=== PATIENT | male | born 1955 | race Caucasian/White ===

== ENCOUNTER → 2017-12-23 | Outpatient (CLI) | payer OTHER ==
--- NOTE | 2017-12-23 16:59 | US ---
EXAMINATION TYPE: US carotid duplex BILAT DATE OF EXAM: 12/23/2017 COMPARISON: NONE CLINICAL HISTORY: H35.60 Retinal hemorrhage left eye. EXAM MEASUREMENTS: RIGHT: Peak Systolic Velocity (PSV) cm/sec ----- Right CCA: 69.6 ----- Right ICA: 78.8 ----- Right ECA: 112.9 ICA/CCA ratio: 1.1 RIGHT: End Diastole cm/sec ----- Right CCA: 21.7 ----- Right ICA: 36.1 ----- Right ECA: 30.5 LEFT: Peak Systolic Velocity (PSV) cm/sec ----- Left CCA: 54.9 ----- Left ICA: 88.7 ----- Left ECA: 67.2 ICA/CCA ratio: 1.6 LEFT: End Diastole cm/sec ----- Left CCA: 21.9 ----- Left ICA: 40.2 ----- Left ECA: 20.6 VERTEBRALS (direction of flow): Right Vertebral: Antegrade Left Vertebral: Antegrade Rhythm: Normal Within the right thyroid, there is a complex, hyperechoic solid appearing nodule visualized measuring 4.8 x 3.8 x 4.0 cm with internal vascularity. Within the left thyroid lobe, there is hyperechoic jeannie id appearing nodule visualized measuring 1.2 x 1.1 x 1.2 cm with internal vascularity. Grayscale images show mild to moderate peripheral shadowing plaque at bilateral carotid bulbs. Veloci ty measurements and ratios in visualized portion of both internal carotid arteries is within normal l imits. Greater than 1 cm nodules bilaterally are seen, dominant more suspicious 4.8 cm right-sided th yroid nodule is noted. IMPRESSION: Mild to moderate atherosclerotic change bilaterally without hemodynamically significant s tenosis seen in either internal carotid artery. Thyroid nodularity, advised ENT referral and and dedi cated thyroid ultrasound to better evaluate and characterize if this is not known finding.
== END | disposition home or self-care (01) ==
LOC: RADUSWWP 16:06
PROVIDERS: ATTEND Ophthalmology
DX: R93.8 Abnormal findings on diagnostic imaging of other specified body structures (principal); E04.2 Nontoxic multinodular goiter; H35.60 Retinal hemorrhage, unspecified eye
CPT/HCPCS: 93880

== ENCOUNTER → 2019-07-10 | Outpatient (CLI) | payer OTHER ==
[2019-07-10 16:07] LABS: ALT 29 U/L (21-72); AST 27 U/L (17-59); African American GFR (CKD) >90 (>60 ml/min/1.73 sqM); Albumin 4.7 g/dL (3.5-5.0); Alkaline Phosphatase 63 U/L (38-126); Anion Gap 8 mmol/L; Blood Urea Nitrogen 15 mg/dL (9-20); Calcium 9.8 mg/dL (8.4-10.2); Carbon Dioxide 32 mmol/L (22-30); Chloride 100 mmol/L (98-107); Glucose 106 mg/dL (74-99); Potassium 4.7 mmol/L (3.5-5.1); Sodium 140 mmol/L (137-145); Total Bilirubin 0.4 mg/dL (0.2-1.3); Total Protein 7.5 g/dL (6.3-8.2)
[2019-07-10 16:34] LABS: Prothrombin Time 10.6 sec (9.0-12.0)
[2019-07-10 23:54] LABS: Hemoglobin A1C 6.6 % (4.0-6.0)
== END | disposition home or self-care (01) ==
LOC: LABPAT 14:48
PROVIDERS: ATTEND Physician Assistant
DX: Z01.810 Encounter for preprocedural cardiovascular examination (principal); Z01.812 Encounter for preprocedural laboratory examination
CPT/HCPCS: 80053; 83036; 85610; 93005

== ENCOUNTER 2019-07-17 12:37 | Day surgery (SDC) | payer OTHER ==
[~2019-07-17 12:37] MED LIST: DEXAMETHASONE SOD PHOSPHATE 10 MG/ML 1 ML VIAL IV ONE; HYDROmorphone 0.5 MG/0.5 ML SYRINGE IVP PRN; LACTATED RINGERS 1,000 ML IV SCH; MIDAZOLAM 2 MG/2 ML VIAL IV PRN; ONDANSETRON 4 MG/2 ML VIAL IVP ONE; Pre Op ABX Message 1 EACH MISC MISCELLANE ONE; SCOPOLAMINE 1.5MG/72HR PATCH TRANSDERM ONE
[2019-07-17 13:16] LABS: Glucose,Whole Blood 127 mg/dL (75-99)
--- NOTE | 2019-07-17 14:50 | P.ANPRN ---
Procedure Note - Anesthesia - Nerve Block Performed Left Supraclavicular Single Time Out Performed: Yes Date of Procedure: 07/17/19 Procedure Start Time: 13:43 Procedure Stop Time: 13:52 Location of Patient Procedure: PreOp Indication: Acute Post-Operative Pain, Requested by Surgeon Sedation Type: Sedate with meaningful contact maintained Preparation: Sterile Prep, Sterile Dressing Position: Supine Catheter: None Needle Types: On-Q Needle Gauge: 20 Ultrasound used to visualize needle placement: Yes Ultrasound used to observe medication spread: Yes Injectate: 0.5% Ropivacaine (see comment for volume) (30 ml + decadron 10 mg) Blood Aspirated: No Pain Paresthesia on Injection Noted: No Resistance on Injection: Normal Image Stored and Saved: Yes Events: Uneventful and Well Tolerated
[2019-07-17] MEDS ORDERED: ROPIVACAINE 5 MG/ML 30 ML VIAL ONE (15:27)
[2019-07-17] MEDS ORDERED: ROCURONIUM BROMIDE 10 MG/ML 10 ML VIAL IV ONE (15:27)
[2019-07-17] MEDS ORDERED: MIDAZOLAM 2 MG/2 ML VIAL ONE (15:27)
[2019-07-17] MEDS ORDERED: NEOSTIGMINE 1 MG/ML 10 ML VIAL ONE (15:27)
[2019-07-17] MEDS ORDERED: fentaNYL (PF) 50 MCG/ML 2 ML AMP ONE (15:27)
[2019-07-17] MEDS ORDERED: SUCCINYLCHOLINE CHLORIDE 100 MG/5 ML SYR IV ONE (15:27)
[2019-07-17] MEDS ORDERED: PROPOFOL 10 MG/ML 20 ML VIAL IV ONE (15:27)
[2019-07-17] MEDS ORDERED: LIDOCAINE 1% INJ 10MG/ML (20 ML MDV) ONE (15:27)
[2019-07-17] MEDS ORDERED: GLYCOPYRROLATE 0.2 MG/ML 2 ML VIAL ONE (15:27)
[2019-07-17] MEDS ORDERED: BUPIVACAINE (PF) 0.5% 30 ML VIAL SQ ONE ×2 (16:27)
[2019-07-17] MEDS ORDERED: LIDOCAINE 1%-EPI 1:100,000 20 ML VIAL SQ ONE ×2 (16:27)
[2019-07-17 17:53] LABS: Glucose,Whole Blood 162 mg/dL (75-99)
[2019-07-17 17:58] VITALS: TEMP 97.1
[2019-07-17] MEDS ORDERED: LACTATED RINGERS 1,000 ML IV ONE (18:10)
[2019-07-17 19:10] VITALS: BP 142/67; PULSE 68; RESP 18
--- NOTE | 2019-07-19 15:47 | P.OP ---
Date of Procedure: 07/17/19 Preoperative Diagnosis: 1. Left carpal tunnel syndrome. 2. 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 Postoperative Diagnosis: 1. Left carpal tunnel syndrome. 2. 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 Procedure(s) Performed: 1. Left endoscopic carpal tunnel release. 2. Left elbow ulnar nerve decompression. Anesthesia: GETA, regional, local Surgeon: Joesph Vlilegas Estimated Blood Loss (ml): 5 Condition: stable Disposition: PACU Indications for Procedure: The patient is a pleasant 64-year-old male who was diagnosed with left carpal tunnel syndrome and severe left cubital tunnel syndrome with intrinsic atrophy. Treatment options (and associated risks and benefits) were discussed in the office. The patient chose surgical release. In preop, I reiterated that there is strong potential for incomplete relief of symptoms. He may experience permanently diminished sensation and persistent weakness, even after surgical release. He expressed understanding and wished to proceed with surgery. Consent forms were signed. The operative sites were confirmed and marked. Description of Procedure: The patient was positioned supine with the operative limb on a hand table and all bony prominences were well-padded. General anesthesia was administered uneventfully. A tourniquet was placed on the left arm which was then prepped and draped in standard, sterile fashion. A time-out was performed, confirming patient identifiers, the operative side, sites and the procedures to be performed: all team members expressed agreement. The limb was exsanguinated with an Esmarch and the tourniquet was inflated. The carpal tunnel was approached first. Loupe magnification was utilized throughout the case for optimum visualization. A 1.5 cm transverse incision was marked just proximal to the wrist flexion crease, in line with the radial border of the ring finger. The skin was sharply incised and the subcutaneous tissues were spread. The volar carpal fascia was identified and sharply incised. attempts to insert a smooth elevator were met with resistance and traction against the median nerve. A [place] elevator was inserted and used to carefully release the adhesions. The synovial elevator was again inserted and passed easily and atraumatically into the carpal tunnel. This was then used to release adhesions on the underside of the transverse carpal ligament. A dilator was used to sound and enlarge the carpal tunnel. The hamate hook was palpable ulnarly. The washboard effect was palpable. The side-specific guide and camera were inserted. The ligament was clearly visualized above. The distal end of the ligament was palpated with a probe. A synovial rasp was used to clear remaining adhesions. The endoscopic blade was inserted and the distal half of the ligament was sharply incised. Residual transverse fibers were released distally and then the proximal portion of the ligament was divided. Wide release of ligament was visually confirmed. The camera was removed. Under direct visualization with loupe magnification, the volar carpal fascia was released with scissors, proximally and distally. The wound was irrigated with normal saline and the incision was closed with interrupted 4-0 Nylon sutures. Attention was then t urned to the elbow. A curvilinear incision was marked posterior to the medial epicondyle. The skin was sharply incised and the subcutaneous tissues were spread, cauterizing superficial vessels as needed. The ulnar nerve was palpably identified posterior to the epicondyle. Multiple layers of thickened, rubbery fibrous tissue were present above the nerve. The nerve was exposed on the posterior aspect of the retro-condylar groove. The proximal course of the nerve was traced and the overlying adhesions were released to approximately 10 cm above the epicondyle. The nerve was then traced distally. Engle's ligament was released on its posterior aspect, leaving a cuff of tissue anteriorly to prevent subluxation. Small crossing vessels at the proximal aspect of the tunnel overlying the nerve were mobilized but left intact. The fascia over the flexor-pronator mass was incised and the muscle fibers were bluntly spread, taking care to protect the exiting motor branches. All along its course, the nerve appeared flattened and dusky with poor turgor, consistent with chronic compression. Of note, no muscle twitches were observed in the hand or wrist during the process of decompressing the nerve. Once completely decompressed, the elbow was taken through full range of motion. There was no instability or subluxation of the nerve. There was note of some mild tethering at the proximal aspect of the tunnel. The insertion of the medial intramuscular septum was partially released. Repeat motion testing showed no further tethering. The tourniquet was released after 69 minutes at 250 mmHg. Good hemostasis was obtained with held pressure and bipolar cautery. Good hemostasis at the wrist was also confirmed. The wound was thoroughly irrigated with normal saline. The subcutaneous tissues were reapproximated with 3-0 Vicryl sutures. The incision was closed with interrupted 4-0 Nylon sutures. Additional local anesthetic with epinephrine was injected around both wounds for postoperative pain control and adjunctive hemostasis. A soft, sterile dressing was applied to the wrist. A separate soft, sterile dressing was applied to the elbow. All sponge, needle and instrument counts were correct at the end of the case. The patient tolerated the procedure well and was transferred to recovery in stable condition.
== END 2019-07-17 19:12 | disposition home or self-care (01) ==
LOC: OR 12:37
PROVIDERS: ATTEND Orthopaedic Surgery
DX: G56.02 Carpal tunnel syndrome, left upper limb (principal); G56.22 Lesion of ulnar nerve, left upper limb; I10 Essential (primary) hypertension; E78.5 Hyperlipidemia, unspecified; H40.9 Unspecified glaucoma; K21.9 Gastro-esophageal reflux disease without esophagitis; F32.9 Major depressive disorder, single episode, unspecified; E11.51 Type 2 diabetes mellitus with diabetic peripheral angiopathy without gangrene; Z97.2 Presence of dental prosthetic device (complete) (partial); F17.210 Nicotine dependence, cigarettes, uncomplicated; Z83.3 Family history of diabetes mellitus; Z82.49 Family history of ischemic heart disease and other diseases of the circulatory system; Z79.84 Long term (current) use of oral hypoglycemic drugs; Z79.899 Other long term (current) drug therapy; Z91.030 Bee allergy status
CPT/HCPCS: 64721; 64718; 64415; 76942; J2250; J1100; J2710; J2405; J2001; J3010; J2795; J0330; J2704; 64413

== ENCOUNTER → 2020-03-24 | Outpatient (CLI) | payer OTHER ==
[2020-03-24 10:39] LABS: HCT 48.1 % (39.0-53.0); HGB 16.2 gm/dL (13.0-17.5); MCH 31.1 pg (25.0-35.0); MCHC 33.7 g/dL (31.0-37.0); MCV 92.4 fL (80.0-100.0); Mean Platelet Volume 6.8; Platelet Count 293 k/uL (150-450); RBC 5.21 m/uL (4.30-5.90); RDW 12.3 % (11.5-15.5); WBC 7.8 k/uL (3.8-10.6)
[2020-03-24 16:54] LABS: T4, Free (Free Thyroxine) 1.3 ng/dL (0.80-1.80)
[2020-03-24 17:39] LABS: African American GFR (CKD) 105.7 (60.0-200.0); Albumin 4.4 g/dL (3.80-4.90); Albumin/Globulin Ratio 2.1 (1.60-3.17); Anion Gap 5.5 mmol/L (4.00-12.00); BUN/Creat Ratio 14.44 Ratio (12.00-20.00); Calcium 9.4 mg/dL (8.7-10.3); Carbon Dioxide 29.5 mmol/L (21.6-31.8); Chol/HDL Ratio 9.38; Globulin 2.1 g/dL (1.6-3.3); Non-African American GFR(CKD) 91.2 (60.0-200.0); Potassium 4.6 mmol/L (3.5-5.5); Total Bilirubin 0.3 mg/dL (0.2-1.2); Total Protein 6.5 g/dL (6.2-8.2)
[2020-03-24 19:51] LABS: Hemoglobin A1C 7.8 % (4.0-6.0)
== END | disposition home or self-care (01) ==
LOC: LABWHC1 09:41
PROVIDERS: ATTEND Internal Medicine
DX: E11.9 Type 2 diabetes mellitus without complications (principal); E78.5 Hyperlipidemia, unspecified; I10 Essential (primary) hypertension; R53.83 Other fatigue
CPT/HCPCS: 36415; 80053; 80061; 82306; 82607; 83036; 83721; 84439; 84443; 85027

== ENCOUNTER → 2020-05-05 | Outpatient (CLI) | payer OTHER ==
--- NOTE | 2020-05-06 07:04 | US ---
EXAMINATION TYPE: US thyroid st tissue head/neck DATE OF EXAM: 05/05/2020 COMPARISON: NONE CLINICAL HISTORY: E04.2 Thyroid nodule. Thyroid nodules GLAND SIZE: Right Lobe: 5.6 x 3.7 x 3.8 cm Overall Parenchyma: heterogenous Left Lobe: 3.8 x 2.1 x 1.7 cm Overall Parenchyma: heterogeneous Isthmus Thickness: 0.4 cm NODULES RIGHT: # of nodules measured on right: 1 1. 4.7 X 3.0 x 3.4 cm hypoechoic mixed nodule at the mid pole with well-defined margins. This nodul e is wider than tall and shows intranodular vascularity. Prior size: no previous LEFT: # of nodules measured on left: 1 1. 1.2 X 1.2 x 1.1 cm hyperechoic solid nodule at the lower pole with well-defined margins. This no dule is taller than wide and shows peripheral vascularity . Prior size: no previous ISTHMUS: # of nodules measured in the isthmus: 0 Bilateral neck scanned, no evidence of lymphadenopathy. IMPRESSION: Nonspecific thyroid nodularity. The need to biopsy should be made on a clinical basis.
== END | disposition home or self-care (01) ==
LOC: RADUSWWP 16:18
PROVIDERS: ATTEND Internal Medicine
DX: E04.2 Nontoxic multinodular goiter (principal)
CPT/HCPCS: 76536

== ENCOUNTER 2020-05-13 10:33 | Emergency (ER) | payer OTHER ==
[2020-05-13] MEDS ORDERED: MORPHINE SULFATE 4 MG/ML SYRINGE IV STA (10:52)
[2020-05-13] MEDS ORDERED: SODIUM CHLORIDE 0.9% 500 ML 500 ML IV STA (10:52)
[2020-05-13 11:15] LABS: Appearance,Urine Clear (Clear); Bilirubin,Urine Negative (Negative); Blood,Urine Negative (Negative); Color,Urine Yellow; Glucose,Urine (UA) 1+ (Negative); Ketones,Urine Negative (Negative); Leukocyte Esterase,Urine Negative (Negative); Nitrite,Urine Negative (Negative); PH, Urine 5.5 (5.0-8.0); Protein,Urine Trace (Negative); Specific Gravity,Urine 1.033 (1.001-1.035)
[2020-05-13 11:19] LABS: Basophils % (A) 0 %; Eosinophils # (A) 0.2 k/uL (0-0.7); Eosinophils % (A) 2 %; HCT 48.5 % (39.0-53.0); HGB 16.3 gm/dL (13.0-17.5); Lymphocytes # (A) 2.2 k/uL (1.0-4.8); Lymphocytes % (A) 30 %; MCH 30.5 pg (25.0-35.0); MCHC 33.6 g/dL (31.0-37.0); MCV 90.9 fL (80.0-100.0); Mean Platelet Volume 7.2; Monocytes # (A) 0.6 k/uL (0-1.0); Monocytes % (A) 8 %; Neutrophils # (A) 4.1 k/uL (1.3-7.7); Neutrophils % (A) 57 %; Platelet Count 267 k/uL (150-450); RBC 5.33 m/uL (4.30-5.90); RDW 12.4 % (11.5-15.5); WBC 7.2 k/uL (3.8-10.6)
--- NOTE | 2020-05-13 11:19 | ED ---
General Adult HPI - General Chief complaint: Abdominal Pain Stated complaint: ABD pain left side Time Seen by Provider: 05/13/20 10:42 Source: patient, RN notes reviewed, old records reviewed Mode of arrival: ambulatory Limitations: no limitations - History of Present Illness Initial comments: 65-year-old male patient presents to ED for evaluation of left lower quadrant pain. Patient reports has been ongoing for the last 3 days. Denies any nausea vomiting fevers or chills. Denies any pain in any other areas. Denies any other acute complaints. Systemic: Pt denies fatigue, fever/chills, rash. Pt denies weakness, night sweats, weight loss. Neuro: Pt denies headache, visual disturbances, syncope or pre-syncope. HEENT: Pt denies ocular discharge or irritation, otalgia, rhinorrhea, pharyngitis or notable lymphadenopathy. Cardiopulmonary: Pt denies chest pain, SOB, heart palpitations, dyspnea on exertion. Abdominal/GI: Pt denies n/v/d. : Pt denies dysuria, burning w/ urination, frequency/urgency. Denies new onset urinary or bowel incontinence. MSK: Pt denies myalgia, loss of strength or function in extremities. Neuro: Pt denies new onset weakness, paresthesias. - Related Data Home Medications Medication Instructions Recorded Confirmed Multivitamins, Thera [Multivitamin 1 tab PO DAILY 07/16/19 05/13/20 (formulary)] Tamsulosin [Flomax] 0.4 mg PO HS 07/16/19 05/13/20 Umeclidinium [place] [Incruse 1 puff INHALATION RT-DAILY 07/16/19 05/13/20 Ellipta] metFORMIN HCL [Glucophage] 1,000 mg PO BID 07/16/19 05/13/20 Albuterol Inhaler [Ventolin Hfa 2 puff INHALATION RT-QID PRN 05/13/20 05/13/20 Inhaler] Brimonidine Tartrate [Alphagan P 1 drops BOTH EYES BID 05/13/20 05/13/20 0.2% Ophth Soln] Dorzolamide-Timol 2.23%/0.68% 1 drop BOTH EYES BID 05/13/20 05/13/20 [Cosopt] Ergocalciferol [Vitamin D2] 50,000 unit PO BROWN 05/13/20 05/13/20 Fenofibrate Nanocrystallized 145 mg PO HS 05/13/20 05/13/20 [Fenofibrate] Fluticasone/Salmeterol 1 puff INHALATION RT-DAILY 05/13/20 05/13/20 [Fluticasone-Salmeterol 232-14] Losartan/Hydrochlorothiazide 1 tab PO DAILY 05/13/20 05/13/20 [Losartan-Hctz 50-12.5 mg Tab] Allergies Allergy/AdvReac Type Severity Reaction Status Date / Time No Known Allergies Allergy Verified 05/13/20 11:19 Review of Systems ROS Statement: Those systems with pertinent positive or pertinent negative responses have been documented in the HPI. ROS Other: All systems not noted in ROS Statement are negative. Past Medical History Past Medical History: COPD, Diabetes Mellitus, GERD/Reflux, Hyperlipidemia, Hypertension, Sleep Apnea/CPAP/BIPAP Additional Past Medical History / Comment(s): USES CPAP. History of Any Multi-Drug Resistant Organisms: None Reported Past Surgical History: Hernia Repair, Orthopedic Surgery Additional Past Surgical History / Comment(s): GLAUCOMA IN LEFT EYE /SURGERY. left elbow Past Anesthesia/Blood Transfusion Reactions: No Reported Reaction Past Psychological History: Anxiety Smoking Status: Current every day smoker Past Alcohol Use History: Rare Past Drug Use History: Marijuana - Past Family History Mother Family Medical History: Deep Vein Thrombosis (DVT) General Exam - General Exam Comments Initial Comments: Constitutional: NAD, AOX3, Pt has pleasant affect. HEENT: NC/AT, trachea midline, neck supple, no lymphadenopathy. External ears appear normal, without discharge. Mucous membranes moist. Eyes PERRLA, EOM intact. There is no scleral icterus. No pallor noted. Cardiopulmonary: RRR, no murmurs, rubs or gallops, no JVD noted. Lungs CTAB in a nterior and posterior queen. No peripheral edema. Abdominal exam: Abdomen soft and non-distended. Abdomen mildly tender to palpation in left lower quadrant region. Bowel sounds active in LLQ. No hep atosplenomegaly. No ecchymosis Neuro: CN II-XII grossly intact. No nuchal rigidity. MSK: Full active ROM in upper and lower extremities, extremities warm and well perfused. Limitations: no limitations Course Vital Signs 05/13/20 05/13/20 10:37 11:13 Temperature 98.4 F Pulse Rate 86 81 Respiratory 18 18 Rate Blood Pressure 146/85 140/89 O2 Sat by Pulse 97 96 Oximetry Medical Decision Making - Medical Decision Making 64-year-old male patient with ED for left lower quadrant abdominal pain. Patient vital signs are stable, afebrile. Physical exam doesn't display some mild left lower quadrant tenderness. Laboratory investigations are unremarkable adipose and display any acute process. Patient discharged to follow up with primary care provider will return to ER with any worsening symptoms. Case discussed with Dr. Rader. - Lab Data Result diagrams: 05/13/20 10:56 05/13/20 10:56 Lab Results 05/13/20 05/13/20 05/13/20 Range/Units 10:56 10:56 10:56 WBC 7.2 (3.8-10.6) k/uL RBC 5.33 (4.30-5.90) m/uL Hgb 16.3 (13.0-17.5) gm/dL Hct 48.5 (39.0-53.0) % MCV 90.9 (80.0-100.0) fL MCH 30.5 (25.0-35.0) pg MCHC 33.6 (31.0-37.0) g/dL RDW 12.4 (11.5-15.5) % Plt Count 267 (150-450) k/uL Neutrophils % 57 % Lymphocytes % 30 % Monocytes % 8 % Eosinophils % 2 % Basophils % 0 % Neutrophils # 4.1 (1.3-7.7) k/uL Lymphocytes # 2.2 (1.0-4.8) k/uL Monocytes # 0.6 (0-1.0) k/uL Eosinophils # 0.2 (0-0.7) k/uL Basophils # 0.0 (0-0.2) k/uL Sodium 135 L (137-145) mmol/L Potassium 4.5 (3.5-5.1) mmol/L Chloride 101 (98-107) mmol/L Carbon Dioxide 27 (22-30) mmol/L Anion Gap 7 mmol/L BUN 15 (9-20) mg/dL Creatinine 0.78 (0.66-1.25) mg/dL Est GFR (CKD-EPI)AfAm >90 (>60 ml/min/1.73 sqM) Est GFR (CKD-EPI)NonAf >90 (>60 ml/min/1.73 sqM) Glucose 174 H (74-99) mg/dL Plasma Lactic Acid Raz (0.7-2.0) mmol/L Calcium 9.8 (8.4-10.2) mg/dL Total Bilirubin 0.6 (0.2-1.3) mg/dL AST 32 (17-59) U/L ALT 43 (4-49) U/L Alkaline Phosphatase 41 (38-126) U/L Total Protein 7.0 (6.3-8.2) g/dL Albumin 4.6 (3.5-5.0) g/dL Lipase 54 (23-300) U/L Urine Color Yellow Urine Appearance Clear (Clear) Urine pH 5.5 (5.0-8.0) Ur Specific [place] 1.033 (1.001-1.035) Urine Protein Trace H (Negative) Urine Glucose (UA) 1+ H (Negative) Urine Ketones Negative (Negative) Urine Blood Negative (Negative) Urine Nitrite Negative (Negative) Urine Bilirubin Negative (Negative) Urine Urobilinogen 2.0 (<2.0) mg/dL Ur Leukocyte Esterase Negative (Negative) 05/13/20 Range/Units 10:56 WBC (3.8-10.6) k/uL RBC (4.30-5.90) m/uL Hgb (13.0-17.5) gm/dL Hct (39.0-53.0) % MCV (80.0-100.0) fL MCH (25.0-35.0) pg MCHC (31.0-37.0) g/dL RDW (11.5-15.5) % Plt Count (150-450) k/uL Neutrophils % % Lymphocytes % % Monocytes % % Eosinophils % % Basophils % % Neutrophils # (1.3-7.7) k/uL Lymphocytes # (1.0-4.8) k/uL Monocytes # (0-1.0) k/uL Eosinophils # (0-0.7) k/uL Basophils # (0-0.2) k/uL Sodium (137-145) mmol/L Potassium (3.5-5.1) mmol/L Chloride (98-107) mmol/L Carbon Dioxide (22-30) mmol/L Anion Gap mmol/L BUN (9-20) mg/dL Creatinine (0.66-1.25) mg/dL Est GFR (CKD-EPI)AfAm (>60 ml/min/1.73 sqM) Est GFR (CKD-EPI)NonAf (>60 ml/min/1.73 sqM) Glucose (74-99) mg/dL Plasma Lactic Acid Raz 1.3 (0.7-2.0) mmol/L Calcium (8.4-10.2) mg/dL Total Bilirubin (0.2-1.3) mg/dL AST (17-59) U/L ALT (4-49) U/L Alkaline Phosphatase (38-126) U/L Total Protein (6.3-8.2) g/dL Albumin (3.5-5.0) g/dL Lipase (23-300) U/L Urine Color Urine Appearance (Clear) Urine pH (5.0-8.0) Ur Specific [place] (1.001-1.035) Urine Protein (Negative) Urine Glucose (UA) (Negative) Urine Ketones (Negative) Urine Blood (Negative) Urine Nitrite (Negative) Urine Bilirubin (Negative) Urine Urobilinogen (<2.0) mg/dL Ur Leukocyte Esterase (Negative) Disposition Clinical Impression: Abdominal pain Disposition: HOME SELF-CARE Condition: Stable Instructions (If sedation given, give patient instructions): Abdominal Pain ( ED) Additional Instructions: Follow-up with primary care provider tomorrow. Return to ER if any worsening symptoms. Is patient prescribed a controlled substance at d/c from ED?: No Referrals: Sky Reyes MD [Primary Care Provider] - 1-2 days
[2020-05-13 11:29] LABS: ALT 43 U/L (4-49); AST 32 U/L (17-59); African American GFR (CKD) >90 (>60 ml/min/1.73 sqM); Albumin 4.6 g/dL (3.5-5.0); Alkaline Phosphatase 41 U/L (38-126); Anion Gap 7 mmol/L; Blood Urea Nitrogen 15 mg/dL (9-20); Calcium 9.8 mg/dL (8.4-10.2); Carbon Dioxide 27 mmol/L (22-30); Chloride 101 mmol/L (98-107); Glucose 174 mg/dL (74-99); Lipase 54 U/L (23-300); Non-African American GFR(CKD) >90 (>60 ml/min/1.73 sqM); Potassium 4.5 mmol/L (3.5-5.1); Sodium 135 mmol/L (137-145); Total Bilirubin 0.6 mg/dL (0.2-1.3)
--- NOTE | 2020-05-13 12:21 | CT ---
EXAMINATION TYPE: CT abdomen pelvis w con DATE OF EXAM: 05/13/2020 COMPARISON: None HISTORY: Lt Abdominal pain CT DLP: 1575.9 mGycm Automated exposure control for dose reduction was used. TECHNIQUE: Helical acquisition of images was performed from the lung bases through the pelvis. CONTRAST: Performed without Oral Contrast and with IV Contrast, patient injected with 100 mL of Isovue 300. FINDINGS: LUNG BASES: No significant abnormality is appreciated. LIVER: Normal. BILIARY SYSTEM: Normal. PANCREAS: Normal. SPLEEN: Normal. ADRENALS: Normal. KIDNEYS: Too small to characterize hypodense lesions of the left kidney. No hydronephrosis. BOWEL: No evidence of bowel obstruction or thickening. Colonic diverticulosis. No acute diverticulit is. Normal appendix. PERITONEUM: No free air is visualized. No free fluid. Tiny fat-containing umbilical hernia. ADENOPATHY: No lymphadenopathy. PELVIS: Incompletely distended urinary bladder. Prostatic calcification. VASCULATURE: No abdominal aortic aneurysm. MUSCULOSKELETAL: Degenerative changes of the spine. IMPRESSION: 1. No acute process to explain patient's left lower quadrant abdominal pain. 2. Colonic diverticulosis. No acute diverticulitis.
[2020-05-13] MEDS ORDERED: SODIUM CHLORIDE 0.9% 500 ML 500 ML IV ONE (12:35)
[2020-05-13 13:03] VITALS: BP 129/79; PULSE 71; RESP 18; TEMP 97.8
[2020-05-13] MEDS ORDERED: ACET/COD 300 MG/30 MG STARTER PACK 6 TAB BTL PO STA (13:06)
== END 2020-05-13 13:06 | disposition home or self-care (01) ==
LOC: EC 10:33
DX: R10.32 Left lower quadrant pain (principal); J44.9 Chronic obstructive pulmonary disease, unspecified; E11.9 Type 2 diabetes mellitus without complications; E78.5 Hyperlipidemia, unspecified; I10 Essential (primary) hypertension; G47.33 Obstructive sleep apnea (adult) (pediatric); F17.200 Nicotine dependence, unspecified, uncomplicated; Z79.84 Long term (current) use of oral hypoglycemic drugs; Z99.89 Dependence on other enabling machines and devices; Z79.899 Other long term (current) drug therapy
CPT/HCPCS: 36415; 74177; 80053; 81003; 83605; 83690; 85025; 96361; 96374; 99284

== ENCOUNTER 2020-07-06 07:11 | Day surgery (SDC) | payer OTHER ==
[2020-07-04 11:36] VITALS: BMI 31.5
[~2020-07-06 07:11] MED LIST changes: -DEXAMETHASONE SOD PHOSPHATE 10 MG/ML 1 ML VIAL IV ONE; -HYDROmorphone 0.5 MG/0.5 ML SYRINGE IVP PRN; -ONDANSETRON 4 MG/2 ML VIAL IVP ONE; +ONDANSETRON 4 MG/2 ML VIAL IVP PRN; -Pre Op ABX Message 1 EACH MISC MISCELLANE ONE; -SCOPOLAMINE 1.5MG/72HR PATCH TRANSDERM ONE; +fentaNYL (PF) 50 MCG/ML 2 ML AMP IV PRN
[2020-07-06 07:57] VITALS: RESP 18; TEMP 97.1
[2020-07-06] MEDS ORDERED: LIDOCAINE 1% (10MG/ML) FOR IV START INTRADERMA ONE (07:58)
[2020-07-06 08:07] LABS: Glucose,Whole Blood 136 mg/dL (75-99)
[2020-07-06] MEDS ORDERED: PROPOFOL 10 MG/ML 20 ML VIAL IV ONE (08:19)
[2020-07-06] MEDS ORDERED: IV FLUID CONTINUATION 1,000 ML IV ONE (08:35)
--- NOTE | 2020-07-06 08:37 | P.PCN ---
Date of Procedure: 07/06/20 Procedure(s) Performed: BRIEF HISTORY: Patient is a 65-year-old pleasant white male scheduled for an elective colonoscopy as a part of evaluation of recent episode of acute sigmoid diverticulitis for which was treated with antibiotics. He has occasional lower abdominal pain and no change in bowel habits. PROCEDURE PERFORMED: Colonoscopy with biopsy. PREOPERATIVE DIAGNOSIS: Recent episode of acute sigmoid diverticulitis. IV sedation per Anesthesia. PROCEDURE: After informed consent was obtained, the patient, was brought into the endoscopy unit. IV sedation was administered by Anesthesia under continuous monitoring. Digital rectal examination was normal. Initially the Olympus CF-160 flexible video colonoscope was then inserted in the rectum, gradually advanced into the cecum without any difficulty. Careful examination was performed as the scope was gradually being withdrawn. Ileocecal valve and the appendiceal orifice were visualized and appeared normal. Prep was excellent. Mucosa of the cecum, ascending colon, transverse colon, descending colon, appeared normal. Scattered sigmoid diverticulosis seen. In the sigmoid colon there was a 3 mm sessile polyp removed by cold biopsy. In the rectum there was another 3 mm sessile polyp removed by cold biopsy. Rest of the sigmoid colon, and rectum appeared normal. Retroflexion was performed in the rectum and no lesions were seen. The patient tolerated the procedure well. IMPRESSION: Scattered sigmoid diverticulosis 3 mm sigmoid colon polyp status post removal by biopsy 3 mm sessile rectal polyp status post removal by cold biopsy RECOMMENDATIONS: Findings of this examination were discussed with the patient as well as his family. He was advised to follow with the biopsy results. If the biopsy shows an adenoma he can have a repeat colonoscopy in 5 years. He can be on a high-fiber diet and take fiber supplements a regular basis.
[2020-07-06 08:53] VITALS: BP 129/85; PULSE 84
== END 2020-07-06 09:31 | disposition home or self-care (01) ==
LOC: ORWHC2ENDO 07:11
PROVIDERS: ATTEND Internal Medicine Gastroenterology
DX: K57.30 Diverticulosis of large intestine without perforation or abscess without bleeding (principal); K63.5 Polyp of colon; K62.1 Rectal polyp; I10 Essential (primary) hypertension; E78.5 Hyperlipidemia, unspecified; J44.9 Chronic obstructive pulmonary disease, unspecified; G47.33 Obstructive sleep apnea (adult) (pediatric); E11.9 Type 2 diabetes mellitus without complications; K21.9 Gastro-esophageal reflux disease without esophagitis; H40.9 Unspecified glaucoma; F41.9 Anxiety disorder, unspecified; Z79.51 Long term (current) use of inhaled steroids; Z79.899 Other long term (current) drug therapy; Z98.890 Other specified postprocedural states; Z99.89 Dependence on other enabling machines and devices
CPT/HCPCS: 88305; 45380; J2704

== ENCOUNTER 2020-07-21 21:59 | Emergency (ER) | payer OTHER ==
[2020-07-21 22:05] VITALS: BP 183/64; PULSE 89; RESP 18; TEMP 98.2
--- NOTE | 2020-07-21 22:39 | XR ---
EXAMINATION TYPE: XR ankle complete LT DATE OF EXAM: 07/21/2020 COMPARISON: NONE HISTORY: Ankle pain TECHNIQUE: 3 views FINDINGS: There is nondisplaced acute transverse fracture distal fibula. There is soft tissue swellin g around the ankle joint. Ankle mortise is anatomic. The joint spaces are fairly normal. IMPRESSION: Acute lateral malleolus fracture.
[2020-07-21] MEDS ORDERED: traMADol 50 MG STARTER PACK 3 TAB BTL PO STA (23:12)
--- NOTE | 2020-07-21 23:12 | ED ---
Lower Extremity Injury HPI - General Chief Complaint: Extremity Injury, Lower Stated Complaint: ankle pain Time Seen by Provider: 07/21/20 22:15 Source: patient Mode of arrival: wheelchair Limitations: physical limitation - History of Present Illness Initial Comments: Patient is a 65-year-old male presenting to the emergency Department with complaints of left ankle pain. Patient states he was walking into his door when he tripped on some shoes and rolled his left ankle. Patient states he tried to put some weight on it but it is extremely painful so he decided come to get an x-ray. He denies any previous fractures or injuries to his left ankle. He denies any other injuries from this fall. He has no further complaints at this time. - Related Data Home Medications Medication Instructions Recorded Confirmed Multivitamins, Thera [Multivitamin 1 tab PO DAILY 07/16/19 07/06/20 (formulary)] Tamsulosin [Flomax] 0.4 mg PO HS 07/16/19 07/06/20 Umeclidinium Bantam [Incruse 1 puff INHALATION RT-DAILY 07/16/19 07/06/20 Ellipta] metFORMIN HCL [Glucophage] 1,000 mg PO BID 07/16/19 07/06/20 Albuterol Inhaler [Ventolin Hfa 2 puff INHALATION RT-QID PRN 05/13/20 07/06/20 Inhaler] Brimonidine Tartrate [Alphagan P 1 drops BOTH EYES BID 05/13/20 07/06/20 0.2% Ophth Soln] Dorzolamide-Timol 2.23%/0.68% 1 drop BOTH EYES BID 05/13/20 07/06/20 [Cosopt] Ergocalciferol [Vitamin D2] 50,000 unit PO BROWN 05/13/20 07/06/20 Fenofibrate Nanocrystallized 145 mg PO HS 05/13/20 07/06/20 [Fenofibrate] Fluticasone/Salmeterol 1 puff INHALATION RT-DAILY 05/13/20 07/06/20 [Fluticasone-Salmeterol 232-14] Losartan/Hydrochlorothiazide 1 tab PO DAILY 05/13/20 07/06/20 [Losartan-Hctz 50-12.5 mg Tab] Sertraline HCl [Zoloft] 100 mg PO DAILY 07/04/20 07/06/20 Previous Rx's Medication Instructions Recorded Hydrocodone/Acetaminophen [[place] 1 tab PO Q6HR PRN #10 tab 07/21/20 5-325] Allergies Allergy/AdvReac Type Severity Reaction Status Date / Time No Known Allergies Allergy Verified 07/21/20 22:02 Review of Systems ROS Statement: Those systems with pertinent positive or pertinent negative responses have been documented in the HPI. ROS Other: All systems not noted in ROS Statement are negative. Past Medical History Past Medical History: COPD, Diabetes Mellitus, GERD/Reflux, Hyperlipidemia, Hypertension, Sleep Apnea/CPAP/BIPAP Additional Past Medical History / Comment(s): USES CPAP. History of Any Multi-Drug Resistant Organisms: None Reported Past Surgical History: Hernia Repair, Orthopedic Surgery Additional Past Surgical History / Comment(s): GLAUCOMA IN LEFT EYE /SURGERY. left elbow, thyroid removed 2020 Past Anesthesia/Blood Transfusion Reactions: No Reported Reaction Past Psychological History: Anxiety Smoking Status: Current every day smoker Past Alcohol Use History: None Reported Past Drug Use History: Marijuana - Past Family History Mother Family Medical History: Deep Vein Thrombosis (DVT) General Exam - General Exam Comments Initial Comments: GENERAL: Patient is well-developed and well-nourished. Patient is nontoxic and in no acute distress. HEAD: Atraumatic, normocephalic. EYES: Pupils equal round and reactive to light, extraocular movements intact, sclera anicteric, conjunctiva are normal. Eyelids were unremarkable. ENT: TMs normal, nares patent, oropharynx clear without exudates. Moist mucous membranes. NECK: Normal range of motion, supple without lymphadenopathy or JVD. LUNGS: Unlabored respirations. Breath sounds clear to auscultation bilaterally and equal. No wheezes rales or rhonchi. HEART: Regular rate and rhythm without murmurs, rubs or gallops. ABDOMEN: Soft, nontender, normoactive bowel sounds. No guarding, no rebound. No masses appreciated. : Deferred MUSCULOSKELETAL: Patient has pain with palpation of the lateral malleolus of the left ankle, moderate swelling. Patient has decreased range of motion secondary to pain and swelling. He is neurovascular intact. No pain of his left knee or left foot. No clubbing or cyanosis. NEUROLOGICAL: Patient is alert and oriented x 3. Motor and sensory are also intact. PSYCH: Normal mood, normal affect. SKIN: Warm, Dry, normal turgor, no rashes or lesions noted. Limitations: physical limitation Course Vital Signs 07/21/20 22:02 Temperature 98.2 F Pulse Rate 89 Respiratory 18 Rate Blood Pressure 183/64 O2 Sat by Pulse 96 Oximetry Procedures - Orthopedic Splinting/Casting Injury #1 Side: left Lower Extremity Injury Location: short leg, ankle Lower Extremity Immobilizer: stirrup splint, Hima wrap, synthetic pre-padded splint Medical Decision Making - Medical Decision Making Patient is a 65-year-old male here with a left ankle injury after he tripped at home. X-rays reveal an acute lateral malleolus fracture, minimally displaced. Patient will be placed in a stirrup splint and he will follow up with orthopedics. Patient is agreement with this plan of care. I will give him a short course of pain medicine as well. We discussed icing, elevation. He is stable for discharge. Disposition Clinical Impression: Closed fracture of left lateral malleolus Disposition: HOME SELF-CARE Condition: Stable Instructions (If sedation given, give patient instructions): Ankle Fracture (ED) Additional Instructions: Please return to the Emergency Department if symptoms worsen or any other concerns. Keep splint in place until follow-up with orthopedics. Alternate between Tylenol and Motrin for pain. May take [place] for severe pain. Elevate above the heart, apply ice to the ankle. Prescriptions: Hydrocodone/Acetaminophen [[place] 5-325] 1 tab PO Q6HR PRN #10 tab PRN Reason: Pain Is patient prescribed a controlled substance at d/c from ED?: Yes When asked, does pt state using other controlled substances?: No If prescribed controlled substance>3 days was MAPS reviewed?: Prescribed <3 Days If opioid is for acute pain is fill amount 7 days or less?: Yes If Rx opioid, was Start Talking consent form obtained?: Yes Referrals: Sky Reyes MD [Primary Care Provider] - 1-2 days Wilfredo Knapp MD [STAFF PHYSICIAN] - 1-2 days
== END 2020-07-21 23:24 | disposition home or self-care (01) ==
LOC: EC 21:59
DX: S82.62XA Displaced fracture of lateral malleolus of left fibula, initial encounter for closed fracture (principal); I10 Essential (primary) hypertension; J44.9 Chronic obstructive pulmonary disease, unspecified; E11.9 Type 2 diabetes mellitus without complications; E78.5 Hyperlipidemia, unspecified; K21.9 Gastro-esophageal reflux disease without esophagitis; G47.30 Sleep apnea, unspecified; F41.9 Anxiety disorder, unspecified; F17.200 Nicotine dependence, unspecified, uncomplicated; Z79.51 Long term (current) use of inhaled steroids; Z79.84 Long term (current) use of oral hypoglycemic drugs; Z79.899 Other long term (current) drug therapy; Z99.89 Dependence on other enabling machines and devices; W01.0XXA Fall on same level from slipping, tripping and stumbling without subsequent striking against object, initial encounter; Y93.01 Activity, walking, marching and hiking
CPT/HCPCS: 29515; 99283

== ENCOUNTER → 2023-02-20 | Outpatient (CLI) | payer MEDICARE, OTHER ==
[2023-02-20 15:02] LABS: HCT 50.8 % (39.6-50.0); HGB 16.4 d/dL (12.0-15.0); MCH 29.6 pg (27.0-32.0); MCHC 32.3 d/dL (32.0-37.0); MCV 91.7 FL (80.0-97.0); Mean Platelet Volume 9.8 FL (9.5-12.2); NRBC Per 100 WBC 0 X 10*3/uL (0.00-0.01); Platelet Count 271 X 10*3/uL (140-440); RBC 5.54 X 10*6/uL (4.40-5.60); RDW 11.9 % (11.5-14.5); WBC 10.08 X 10*3/uL (4.50-10.00)
== END | disposition home or self-care (01) ==
LOC: LABPAT 10:33
PROVIDERS: ATTEND Surgery
DX: Z01.812 Encounter for preprocedural laboratory examination (principal)
CPT/HCPCS: 85027

== ENCOUNTER 2023-02-22 10:40 | Inpatient (IN) | payer MEDICARE, OTHER ==
[2023-02-19 13:32] VITALS: BMI 32.3
[~2023-02-22 10:40] MED LIST changes: +DEXAMETHASONE SOD PHOSPHATE 4 MG/ML 1 ML VIAL IV ONE; +HYDROmorphone 0.5 MG/0.5 ML SYRINGE IVP PRN; -LACTATED RINGERS 1,000 ML IV SCH; +ONDANSETRON 4 MG/2 ML VIAL IVP ONE; -ONDANSETRON 4 MG/2 ML VIAL IVP PRN; -fentaNYL (PF) 50 MCG/ML 2 ML AMP IV PRN
[2023-02-22] MEDS: LACTATED RINGERS 1,000 ML IV SCH ×2 (11:11→17:46)
[2023-02-22] MEDS ORDERED: FAMOTIDINE 20 MG/2 ML VIAL IVP ONE (11:14)
[2023-02-22 11:50] LABS: Glucose,Whole Blood 128 mg/dL (70-110)
--- NOTE | 2023-02-22 11:57 | P.HPIHPCON ---
History of Present Illness H&P Date: 02/22/23 Patient is a 67-year-old male who has evidence of high-grade left internal carotid artery stenosis who previously had been symptomatic. He is recommended to undergo intervention but needed to secure out care for his adult family member. He had done so and he finally represented for intervention. He has been taking dual antiplatelet therapy but initially was not therefore he was thought to be a better candidate for open carotid endarterectomy. He denies any unilateral weakness, strokelike symptoms or other word finding difficulties since his hospitalization Consent for Procedure: I have explained the operation/procedure to the patient, including the risks, benefits, side effects, alternative therapies (including not receiving the proposed treatment or service), the likelihood of the patient achieving his/her goals, and potential recuperation problems for the procedure/sedation/analgesia, as well as any blood products, if indicated. I also explained to the patient the risks, benefits and side effects of the alternatives, as well as the risks related to not receiving the proposed procedure, care, treatment, or services. 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 Glaucoma. Uses CPAP. History of Any Multi-Drug Resistant Organisms: None Reported Past Surgical History: Hernia Repair, Orthopedic Surgery Additional Past Surgical History / Comment(s): Left eye surgery for Glaucoma, left elbow surgery, thyroidectomy. Past Anesthesia/Blood Transfusion Reactions: No Reported Reaction Past Psychological History: Anxiety Smoking Status: Current every day smoker Past Alcohol Use History: Rare Additional Past Alcohol Use History / Comment(s): SMOKER FOR 50 YRS, 1PPD. Past Drug Use History: Marijuana Additional Drug Use History / Comment(s): USES MARIJUANA FOR BACK PAIN EVERY FEW DAYS. Aware no use 24 hrs prior to procedure. - Past Family History Mother Family Medical History: Cancer, Deep Vein Thrombosis (DVT) Sister(s) Family Medical History: Cancer Brother(s) Family Medical History: Cancer Medications and Allergies Home Medications Medication Instructions Recorded Confirmed Type Albuterol Inhaler [Ventolin Hfa 2 puff INHALATION Q4H PRN 05/13/20 02/22/23 History Inhaler] Brimonidine Tartrate [Alphagan P 1 drop BOTH EYES BID 05/13/20 02/22/23 History 0.2% Ophth Soln] Dorzolamide-Timol 2.23%/0.68% 1 drop BOTH EYES BID 05/13/20 02/22/23 History [Cosopt] Sertraline HCl [Zoloft] 100 mg PO QAM 07/04/20 02/22/23 History Dulaglutide [Trulicity] 0.75 mg SQ MO 10/17/22 02/22/23 History Losartan [Cozaar] 50 mg PO QAM 10/17/22 02/22/23 History Tiotropium [place] [Spiriva] 1 cap INHALATION QAM 10/17/22 02/22/23 History buPROPion SR [Wellbutrin SR] 150 mg PO QAM 10/17/22 02/22/23 History Allergies Allergy/AdvReac Type Severity Reaction Status Date / Time bee venom protein (honey bee) Allergy Severe Anaphylaxis Verified 02/22/23 11:12 bee AdvReac Anaphylaxis Uncoded 02/22/23 11:12 Surgical - Exam Vital Signs Temp Pulse Resp BP Pulse Ox 97.6 F 73 16 157/78 93 L 02/22/23 11:10 02/22/23 11:10 02/22/23 11:10 02/22/23 11:10 02/22/23 11:10 Gen. a pleasant cooperative male in no acute distress. HEENT is no cephalic, atraumatic, extraocular motion intact. Heart appears regular. Lungs are clear. Abdomen is soft. Extremity show no clubbing, cyanosis or edema. Normal mood and affect. Cranial nerves II-12 grossly intact Results Repeat review of imaging reconfirms high-grade left internal carotid artery stenosis - Labs Abnormal Lab Results - Last 24 Hours (Table) 02/22/23 Range/Units 11:29 POC Glucose (mg/dL) 128 H (70-110) mg/dL Assessment and Plan Assessment: High-grade left internal carotid artery stenosis, previously symptomatic Plan: Plan for left carotid endarterectomy today. Risks and benefits of the procedure were discussed the patient seemingly understands and is willing to proceed.
[2023-02-22] MEDS ORDERED: HEPARIN SODIUM,PORCINE 10,000 UNIT/ML 1 ML VIAL ONE (12:27)
[2023-02-22] MEDS ORDERED: NEOSTIGMINE 1 MG/ML 10 ML VIAL ONE (12:27)
[2023-02-22] MEDS ORDERED: MIDAZOLAM 2 MG/2 ML VIAL ONE (12:27)
[2023-02-22] MEDS ORDERED: LIDOCAINE 2% INJ 20 MG/ML (2 ML VIAL) ONE (12:27)
[2023-02-22] MEDS ORDERED: GLYCOPYRROLATE 0.2 MG/ML 2 ML VIAL ONE (12:27)
[2023-02-22] MEDS ORDERED: ROCURONIUM 10 MG/ML (5 ML VIAL) IV ONE (12:27)
[2023-02-22] MEDS ORDERED: SUCCINYLCHOLINE CHLORIDE 200 MG/10 ML VIAL IV ONE (12:27)
[2023-02-22] MEDS ORDERED: PROTAMINE SULFATE 10 MG/ML 5 ML VIAL IV ONE (12:27)
[2023-02-22] MEDS ORDERED: fentaNYL (PF) 50 MCG/ML 2 ML AMP ONE (12:27)
[2023-02-22] MEDS ORDERED: LIDOCAINE 4% LTA KIT (4 ML) TOPICAL ONE (12:27)
[2023-02-22] MEDS ORDERED: PROPOFOL 10 MG/ML 20 ML VIAL IV ONE (12:27)
[2023-02-22] MEDS ORDERED: LACTATED RINGERS 1,000 ML IV ONE (12:45)
[2023-02-22] MEDS ORDERED: GELATIN SPONGE,ABSORB (LARGE) 1 EACH SPONGE TOPICAL ONE (13:07)
[2023-02-22] MEDS ORDERED: THROMBIN (BOVINE) 5,000 UNIT VIAL TOPICAL ONE (13:07)
[2023-02-22] MEDS ORDERED: LIDOCAINE 1% INJ 10MG/ML (20 ML MDV) SQ ONE ×2 (15:03)
[2023-02-22] MEDS ORDERED: MAG HYDROX/AL HYDROX/SIMETH 30 ML CUP PO PRN (15:46)
[2023-02-22] MEDS ORDERED: TRIMETHOBENZAMIDE 100 MG/ML 2 ML VIAL IM PRN (15:46)
[2023-02-22] MEDS ORDERED: BENZOCAINE/MENTHOL LOZENG 1 EACH LOZENGE MUCOUS MEM PRN (15:46)
[2023-02-22] MEDS ORDERED: MORPHINE SULFATE 2 MG/ML SYRINGE IVP PRN (15:46)
--- NOTE | 2023-02-22 15:46 | P.OP ---
Date of Procedure: 02/22/23 Description of Procedure: Preoperative Diagnosis: left Internal carotid artery stenosis Postoperative Diagnosis: Same Procedure: Left carotid endarterectomy with patch angioplasty Anesthesia: GET Surgeon: Edilma Loya DO Estimated Blood Loss (ml): 75cc IV Fluids: see records Urine Output: see records Specimen: left cervical lymphnode, left carotid plaque Condition: stable Disposition: PACU Findings and indications: Juancho is a 67-year-old male with previously symptomatic left internal carotid artery stenosis who is maintained on dual antiplatelet therapy until he was able to get his affairs in order to go forward with recommended intervention. He presented today for this. Risks and benefits were discussed. He seemingly understood and was willing to proceed. Procedure in detail: After written informed consent was obtained the patient all risks benefits and competitions were described the patient is brought to the operative suite and laid in a supine position. The area of the neck was prepped and draped in usual sterile fashion after appropriate anesthetic was performed per the anesthesiologist. A timeout was performed in normal fashion antibiotics were administered prior to incision. An oblique incision was then created just anterior to the sternocleidomastoid musculature with a 10 blade scalpel and dissection was carried down to the carotid sheath. The carotid sheath was then entered after facial vein was located and suture ligated in normal fashion. The common carotid, internal carotid, external carotid and superior thyroid arteries were located and dissected free in a meticulous fashion circumferentially and controlled with vessel loops. Attention was then placed to locating the vagus nerve as well as hypoglossal nerve which were both spared. The vagus nerve was directly overlying the carotid artery through its course making dissection tedious and di fficult. There was a moderate amount of adhesive tissue throughout the cervical area. Once controlled, patient was administered heparin and followed with ACTs for appropriate heparinization. Once ACT was appropriate, the proximal and distal aspects of the dissection were then controlled with vascular clamps. Arteriotomy was then created with 11 blade scalpel and extended with Hendrix Shirley scissors. Cerebral oximetry was utilized and there was no evidence of change with clamping from pre-oxygenated numbers . No shunt was required. An endarterectomy was then performed with a [place] elevator. The plaque was transected proximally and then feathered at the distal aspect of the internal carotid artery and removed. The area was copiously irrigated with heparinized saline and all free debris was removed. A 0.8 x 8 cm bovine pericardial patch was then chosen and patch angioplasty was performed with 6-0 Prolene suture in a running fashion. Prior to last sutures being placed the inflow was released flushing any free debris out of the patch. This was reclamped and the internal carotid artery was released revealing good brisk flow and was once again reclamped. The external carotid and superior thyroid artery were then released followed by the common carotid artery to allow any free debris to be flushed into the external system. Final sutures were placed and secured. Internal carotid artery control was then released. Good pulsatile flow was noted through the patch and a Doppler was utilized demonstrating good brisk flow into the internal, external carotid arteries without any signs of obstruction. Hemostasis was then assured with interrupted sutures of 6-0 Prolene as well as thrombin and Gelfoam. A 10-[place] RALF drain was then placed in normal fashion and secured with 3-0 nylon suture. The incision was then closed in a multilayer fashion after hemostasis was assured. The skin was then cleansed and dressings were placed. Patient tolerated the procedure well and was following commands and moving all extremities. Patient was then sent to PACU for recovery.
[2023-02-22] MEDS: PHENYLEPHRINE 40 MG in SODIUM CHLORIDE 0.9% 250 ML IV SCH ×2 (17:00→17:45)
[2023-02-22 17:37] LABS: Glucose,Whole Blood 158 mg/dL (70-110)
[2023-02-22] MEDS ORDERED: DEXTROSE 50% SYRINGE 50 ML IVP PRN ×2 (17:53)
[2023-02-22] MEDS: LOSARTAN 50 MG TAB PO SCH (18:01)
[2023-02-22] MEDS: HEPARIN SODIUM,PORCINE/PF 5,000 UNIT/0.5 ML SYRINGE SQ SCH (18:10)
[2023-02-22 21:23] LABS: Glucose,Whole Blood 153 mg/dL (70-110)
[2023-02-22] MEDS: ACETAMINOPHEN TAB 325 MG TAB PO PRN (21:27)
[2023-02-22] MEDS: BRIMONIDINE TARTRATE 0.2% DROPS 5 ML BTL BOTH EYES SCH (21:28)
[2023-02-22] MEDS: DORZOLAMIDE-TIMOLOL 2.23%/0.68 10ML BTL BOTH EYES SCH (21:28)
[2023-02-22] MEDS: INSULIN ASPART (NovoLOG) 100 UNIT/ML VIAL SQ SCH (21:29)
[2023-02-23] MEDS: HEPARIN SODIUM,PORCINE/PF 5,000 UNIT/0.5 ML SYRINGE SQ SCH ×2 (00:21→08:08)
[2023-02-23 06:13] LABS: Basophils % (A) 0 %; Eosinophils % (A) 0 %; HCT 43.6 % (39.0-53.0); HGB 14.7 gm/dL (13.0-17.5); Lymphocytes % (A) 17 %; MCH 30.5 pg (25.0-35.0); MCHC 33.8 g/dL (31.0-37.0); MCV 90.2 fL (80.0-100.0); Mean Platelet Volume 7.7; Monocytes # (A) 1.2 k/uL (0-1.0); Monocytes % (A) 10 %; Neutrophils # (A) 8.7 k/uL (1.3-7.7); Neutrophils % (A) 71 %; Platelet Count 226 k/uL (150-450); RBC 4.84 m/uL (4.30-5.90); RDW 12.4 % (11.5-15.5); WBC 12.2 k/uL (3.8-10.6)
[2023-02-23 06:46] LABS: Glucose,Whole Blood 178 mg/dL (70-110)
[2023-02-23] MEDS: INSULIN ASPART (NovoLOG) 100 UNIT/ML VIAL SQ SCH ×2 (06:49→11:41)
[2023-02-23 06:56] LABS: African American GFR (CKD) >90 (>60 ml/min/1.73 sqM); Anion Gap 4 mmol/L; Blood Urea Nitrogen 12 mg/dL (9-20); Calcium 8.6 mg/dL (8.4-10.2); Carbon Dioxide 29 mmol/L (22-30); Chloride 102 mmol/L (98-107); Glucose 127 mg/dL (74-99); Non-African American GFR(CKD) >90 (>60 ml/min/1.73 sqM); Potassium 4.1 mmol/L (3.5-5.1); Sodium 135 mmol/L (137-145)
[2023-02-23] MEDS: ALBUTEROL HFA INHALER INHALATION PRN ×2 (07:44→11:20)
[2023-02-23] MEDS ORDERED: TIOTROPIUM 2.5 MCG INHALER INHALATION SCH (08:00)
[2023-02-23] MEDS: DORZOLAMIDE-TIMOLOL 2.23%/0.68 10ML BTL BOTH EYES SCH (08:09)
[2023-02-23] MEDS: BRIMONIDINE TARTRATE 0.2% DROPS 5 ML BTL BOTH EYES SCH (08:09)
[2023-02-23] MEDS: LOSARTAN 50 MG TAB PO SCH (08:10)
[2023-02-23] MEDS ORDERED: ASPIRIN 81 MG PO SCH (09:00)
[2023-02-23] MEDS ORDERED: IPRATROPIUM 0.5 MG/2.5 ML NEBU INHALATION SCH (09:00)
[2023-02-23] MEDS ORDERED: CLOPIDOGREL 75 MG TAB PO SCH (09:00)
[2023-02-23] MEDS ORDERED: buPROPion SR 150 MG TABLET.ER PO SCH (09:00)
[2023-02-23] MEDS ORDERED: SERTRALINE 100 MG TAB PO SCH (09:00)
[2023-02-23] MEDS ORDERED: SODIUM CHLORIDE 0.9% 500 ML 500 ML IV ONE (11:01)
[2023-02-23] MEDS: ACETAMINOPHEN TAB 325 MG TAB PO PRN (11:23)
[2023-02-23 11:39] LABS: Glucose,Whole Blood 102 mg/dL (70-110)
--- NOTE | 2023-02-23 12:07 | P.CONS ---
History of Present Illness - Reason for Consult Consult date: 02/23/23 Medical management - History of Present Illness History of present illness; Patient is a 67-year-old right-handed male with history of hypertension, diabetes, hyperlipidemia, tobacco use who presented to the hospital for elective left carotid endarterectomy. Patient was admitted in October of this year for acute ischemic stroke involving left parietal occipital junction. Patient was discharged on aspirin and Plavix at that time. Patient was recommended surgical intervention for his left internal carotid artery stenosis at that time but because of some personal issue was not able to schedule it till now. Patient underwent left carotid endarterectomy on 02/22. Postoperatively the medicine team has been consulted for medical management REVIEW OF SYSTEMS: CONSTITUTIONAL: No fever, no malaise, no fatigue. HEENT: No recent visual problems or hearing problems. Denied any sore throat. Combining of headache CARDIOVASCULAR: No chest pain, orthopnea, PND, no palpitations, no syncope. PULMONARY: No shortness of breath, no cough, no hemoptysis. GASTROINTESTINAL: No diarrhea, no nausea, no vomiting, no abdominal pain. NEUROLOGICAL: No headaches, no weakness, no numbness. HEMATOLOGICAL: Denies any bleeding or petechiae. GENITOURINARY: Denies any burning micturition, frequency, or urgency. MUSCULOSKELETAL/RHEUMATOLOGICAL: Denies any joint pain, swelling, or any muscle pain. ENDOCRINE: Denies any polyuria or polydipsia. The rest of the 14-point review of systems is negative. PHYSICAL EXAMINATION: GENERAL: The patient is alert and oriented x3, not in any acute distress. Well developed, well nourished. HEENT: Pupils are round and equally reacting to light. EOMI. No scleral icterus. No conjunctival pallor. Normocephalic, atraumatic. No pharyngeal erythema. No thyromegaly. Left carotid endarterectomy surgical incision seen CARDIOVASCULAR: S1 and S2 present. No murmurs, rubs, or gallops. PULMONARY: Chest is clear to auscultation, no wheezing or crackles. ABDOMEN: Soft, nontender, nondistended, normoactive bowel sounds. No palpable organomegaly. MUSCULOSKELETAL: No joint swelling or deformity. EXTREMITIES: No cyanosis, clubbing, or pedal edema. NEUROLOGICAL: Gross neurological examination did not reveal any focal deficits. SKIN: No rashes. Assessment and plan Left ICA stenosis status post left carotid endarterectomy History of Acute ischemic stroke involving left parietal occipital junction, likely due to symptomatic left ICA stenosis. Hypertension Diabetes Hyperlipidemia Tobacco use Marijuana use Obesity Plan; Monitor vital signs Monitor CBC Monitor CMP Continue aspirin and Plavix Monitor blood sugar levels, continue sliding insulin Continue losartan Continue breathing treatments Follow-up in vascular surgery recommendations Past Medical History Past Medical History: COPD, CVA/TIA, Diabetes Mellitus, Eye Disorder, GERD/Reflux, Hyperlipidemia, Hypertension, Memory Impairment, Sleep Apnea/CPAP/BIPAP, Thyroid Disorder Additional Past Medical History / Comment(s): Hx CVA 10/01, with memory loss. Glaucoma. Uses CPAP. History of Any Multi-Drug Resistant Organisms: None Reported Past Surgical History: Hernia Repair, Orthopedic Surgery Additional Past Surgical History / Comment(s): Left eye surgery for Glaucoma, left elbow surgery, thyroidectomy. Past Anesthesia/Blood Transfusion Reactions: No Reported Reaction Past Psychological History: Anxiety Smoking Status: Current every day smoker Past Alcohol Use History: Rare Additional Past Alcohol Use History / Comment(s): SMOKER FOR 50 YRS, 1PPD. Past Drug Use History: Marijuana Additional Drug Use History / Comment(s): USES MARIJUANA FOR BACK PAIN EVERY FEW DAYS. Aware no use 24 hrs prior to procedure. - Past Family History Mother Family Medical History: Cancer, Deep Vein Thrombosis (DVT) Sister(s) Family Medical History: Cancer Brother(s) Family Medical History: Cancer Medications and Allergies Home Medications Medication Instructions Recorded Confirmed Type Albuterol Inhaler [Ventolin Hfa 2 puff INHALATION Q4H PRN 05/13/20 02/22/23 History Inhaler] Brimonidine Tartrate [Alphagan P 1 drop BOTH EYES BID 05/13/20 02/22/23 History 0.2% Ophth Soln] Dorzolamide-Timol 2.23%/0.68% 1 drop BOTH EYES BID 05/13/20 02/22/23 History [Cosopt] Sertraline HCl [Zoloft] 100 mg PO QAM 07/04/20 02/22/23 History Dulaglutide [Trulicity] 0.75 mg SQ MO 10/17/22 02/22/23 History Losartan [Cozaar] 50 mg PO QAM 10/17/22 02/22/23 History Tiotropium [place] [Spiriva] 1 cap INHALATION QAM 10/17/22 02/22/23 History buPROPion SR [Wellbutrin SR] 150 mg PO QAM 10/17/22 02/22/23 History Allergies Allergy/AdvReac Type Severity Reaction Status Date / Time bee venom protein (honey bee) Allergy Severe Anaphylaxis Verified 02/22/23 11:12 bee AdvReac Anaphylaxis Uncoded 02/22/23 11:12 Physical Exam Vitals: Vital Signs Temp Pulse Pulse Resp BP BP BP 02/23/23 07:47 02/23/23 07:00 74 8 L 126/70 02/23/23 06:45 70 27 H 02/23/23 06:30 64 17 145/70 02/23/23 06:15 64 20 02/23/23 06:00 70 23 129/72 02/23/23 05:45 65 19 02/23/23 05:30 66 19 113/71 02/23/23 05:15 67 15 02/23/23 05:00 64 20 106/68 02/23/23 04:45 64 21 02/23/23 04:30 66 20 127/71 02/23/23 04:15 65 20 02/23/23 04:00 97.9 F 67 19 138/95 02/23/23 03:45 66 18 134/75 02/23/23 03:30 66 17 133/87 02/23/23 03:15 66 18 02/23/23 03:00 65 19 130/66 02/23/23 02:45 65 18 02/23/23 02:30 66 19 122/81 02/23/23 02:15 65 18 02/23/23 02:00 66 21 150/89 02/23/23 01:45 68 16 02/23/23 01:30 70 20 143/73 02/23/23 01:15 64 19 02/23/23 01:00 66 25 H 129/74 02/23/23 00:45 63 22 02/23/23 00:30 63 21 122/73 02/23/23 00:15 64 18 02/23/23 00:06 70 14 02/23/23 00:00 98.4 F 67 19 121/73 02/22/23 23:45 64 20 02/22/23 23:30 64 21 115/74 02/22/23 23:15 66 19 02/22/23 23:00 73 18 128/79 02/22/23 22:45 71 18 02/22/23 22:30 79 20 123/78 02/22/23 22:15 73 17 02/22/23 22:00 75 18 159/83 02/22/23 21:45 66 16 130/80 02/22/23 21:30 67 17 120/80 02/22/23 21:15 81 36 H 02/22/23 21:00 70 20 145/81 02/22/23 20:45 69 20 141/80 02/22/23 20:30 64 18 02/22/23 20:15 73 22 02/22/23 20:00 97.9 F 68 25 H 02/22/23 19:45 72 22 02/22/23 19:30 71 19 165/93 02/22/23 19:15 65 18 165/93 02/22/23 19:00 62 19 165/93 02/22/23 18:45 62 16 176/85 02/22/23 18:30 62 17 153/99 02/22/23 18:15 63 18 116/81 02/22/23 18:00 65 18 02/22/23 17:45 98.0 F 69 20 02/22/23 17:30 65 20 147/65 168/69 02/22/23 17:15 60 20 180/82 194/83 02/22/23 17:00 56 L 20 114/65 180/89 02/22/23 16:45 70 20 114/65 02/22/23 16:30 63 20 106/48 02/22/23 16:15 67 20 100/46 114/61 02/22/23 16:00 65 20 96/46 116/59 02/22/23 15:41 97.5 F L 73 20 123/68 124/58 02/22/23 11:10 97.6 F 73 16 157/78 BP Pulse Ox 02/23/23 07:47 93 L 02/23/23 07:00 92 L 02/23/23 06:45 94 L 02/23/23 06:30 94 L 02/23/23 06:15 93 L 02/23/23 06:00 93 L 02/23/23 05:45 93 L 02/23/23 05:30 94 L 02/23/23 05:15 92 L 02/23/23 05:00 92 L 02/23/23 04:45 93 L 02/23/23 04:30 92 L 02/23/23 04:15 92 L 02/23/23 04:00 98 02/23/23 03:45 94 L 02/23/23 03:30 95 02/23/23 03:15 95 02/23/23 03:00 94 L 02/23/23 02:45 95 02/23/23 02:30 92 L 02/23/23 02:15 94 L 02/23/23 02:00 93 L 02/23/23 01:45 94 L 02/23/23 01:30 94 L 02/23/23 01:15 94 L 02/23/23 01:00 94 L 02/23/23 00:45 95 02/23/23 00:30 94 L 02/23/23 00:15 95 02/23/23 00:06 94 L 02/23/23 00:00 94 L 02/22/23 23:45 95 02/22/23 23:30 95 02/22/23 23:15 95 02/22/23 23:00 94 L 02/22/23 22:45 96 02/22/23 22:30 96 02/22/23 22:15 94 L 02/22/23 22:00 95 02/22/23 21:45 96 02/22/23 21:30 94 L 02/22/23 21:15 93 L 02/22/23 21:00 96 02/22/23 20:45 94 L 02/22/23 20:30 95 02/22/23 20:15 95 02/22/23 20:00 95 02/22/23 19:45 93 L 02/22/23 19:30 94 L 02/22/23 19:15 95 02/22/23 19:00 95 02/22/23 18:45 96 02/22/23 18:30 97 02/22/23 18:15 96 02/22/23 18:00 123/63 95 02/22/23 17:45 106/57 95 02/22/23 17:30 97 02/22/23 17:15 97 02/22/23 17:00 94 L 02/22/23 16:45 94 L 02/22/23 16:30 94 L 02/22/23 16:15 94 L 02/22/23 16:00 94 L 02/22/23 15:41 94 L 02/22/23 11:10 93 L Intake and Output 02/22/23 02/23/23 02/23/23 22:59 06:59 14:59 Intake Total 1319.264 316.646 36.967 Output Total 380 1090 350 Balance 939.264 -773.354 -313.033 Intake: IV 730 290 30 0.9 @ KVO 30 80 10 Lactated Ringers 1,000 ml 100 160 20 @ 20 mls/hr IV .Q24H [facility] Rx#:[id number] ceFAZolin 2 gm In Sodium 50 Chloride 0.9% 50 ml @ 100 mls/hr IVPB ONCE PRN Rx# :[id number] Intake, IV Titration 49.264 26.646 6.967 Amount Phenylephrine 40 mg In 49.264 26.646 6.967 Sodium Chloride 0.9% 250 ml @ 0.5 MCG/KG/MIN 19. 812 mls/hr IV .[id number] [facility] Rx#:[id number] Oral 540 Output: Drainage 10 Left Neck 10 Urine 305 1080 350 Estimated Blood Loss 75 Other: Voiding Method Urinal Weight 99.4 kg ABP, PAP, CO, CI - Last 8 Hours Arterial Blood Pressure 176/74 Arterial Blood Pressure 141/64 Arterial Blood Pressure 114/47 Arterial Blood Pressure 116/49 Arterial Blood Pressure 158/72 Arterial Blood Pressure 134/52 Arterial Blood Pressure 141/56 Arterial Blood Pressure 122/49 Arterial Blood Pressure 130/56 Arterial Blood Pressure 121/53 Arterial Blood Pressure 120/54 Arterial Blood Pressure 129/57 Arterial Blood Pressure 150/60 Arterial Blood Pressure 133/54 Arterial Blood Pressure 148/62 Arterial Blood Pressure 153/65 Arterial Blood Pressure 128/56 Arterial Blood Pressure 145/61 Arterial Blood Pressure 136/58 Arterial Blood Pressure 126/55 Arterial Blood Pressure 126/57 Arterial Blood Pressure 143/60 Arterial Blood Pressure 155/68 Arterial Blood Pressure 110/60 Arterial Blood Pressure 137/57 Results CBC & Chem 7: 02/23/23 05:16 02/23/23 05:16 Labs: Abnormal Lab Results - Last 24 Hours (Table) 02/22/23 02/22/23 02/22/23 Range/Units 11:29 17:36 21:22 WBC (3.8-10.6) k/uL Neutrophils # (1.3-7.7) k/uL Monocytes # (0-1.0) k/uL Sodium (137-145) mmol/L Glucose (74-99) mg/dL POC Glucose (mg/dL) 128 H 158 H 153 H (70-110) mg/dL 02/23/23 02/23/23 02/23/23 Range/Units 05:16 05:16 06:41 WBC 12.2 H (3.8-10.6) k/uL Neutrophils # 8.7 H (1.3-7.7) k/uL Monocytes # 1.2 H (0-1.0) k/uL Sodium 135 L (137-145) mmol/L Glucose 127 H (74-99) mg/dL POC Glucose (mg/dL) 178 H (70-110) mg/dL
[2023-02-23 13:31] VITALS: BP 123/90; PULSE 69; RESP 45; TEMP 98.3
--- NOTE | 2023-02-23 13:35 | P.DS ---
Providers Date of admission: 02/22/23 10:40 Attending physician: Edilma Loya, DO Consults: 02/22/23 15:46 Consult Physician Routine Consulting Provider: David Orellana Reason/Comments: med management Do you want consulting provider notified?: Yes Primary care physician: Zeus [facility] Course: Patient is a 67-year-old male who was initially brought in to the hospital for high-grade left internal carotid artery stenosis. He underwent surgical intervention on 02/22/2023 without event. He was monitored in ICU overnight due to mildly low blood pressures. He was maintained on a small bit of vasopressor to keep appropriate blood pressures. This has been weaned off. He has a Loya catheter that has been removed and he has urinated. The RALF drain has been removed. Is neurologically intact. His vital signs are stable and he is found to be in suitable condition for discharge home Patient Condition at Discharge: Good Plan - Discharge Summary Discharge Rx Participant: No New Discharge Prescriptions: No Action Dorzolamide-Timol 2.23%/0.68% [Cosopt] 1 drop BOTH EYES BID Brimonidine Tartrate [Alphagan P 0.2% Ophth Soln] 1 drop BOTH EYES BID Albuterol Inhaler [Ventolin Hfa Inhaler] 2 puff INHALATION Q4H PRN PRN Reason: Shortness Of Breath Sertraline HCl [Zoloft] 100 mg PO QAM Tiotropium [place] [Spiriva] 1 cap INHALATION QAM buPROPion SR [Wellbutrin SR] 150 mg PO QAM Dulaglutide [Trulicity] 0.75 mg SQ MO Losartan [Cozaar] 50 mg PO QAM Discharge Medication List Albuterol Inhaler [Ventolin Hfa Inhaler] 2 puff INHALATION Q4H PRN 05/13/20 [History] Brimonidine Tartrate [Alphagan P 0.2% Ophth Soln] 1 drop BOTH EYES BID 05/13/20 [History] Dorzolamide-Timol 2.23%/0.68% [Cosopt] 1 drop BOTH EYES BID 05/13/20 [History] Sertraline HCl [Zoloft] 100 mg PO QAM 07/04/20 [History] Dulaglutide [Trulicity] 0.75 mg SQ MO 10/17/22 [History] Losartan [Cozaar] 50 mg PO QAM 10/17/22 [History] Tiotropium [place] [Spiriva] 1 cap INHALATION QAM 10/17/22 [History] buPROPion SR [Wellbutrin SR] 150 mg PO QAM 10/17/22 [History] Follow up Appointment(s)/Referral(s): Edilma Loya DO [STAFF PHYSICIAN] - 2 Weeks Activity/Diet/Wound Care/Special Instructions: May shower. No soaking. Resume home medications. Resume home activity. No heavy lifting for 2 weeks. Discharge Disposition: HOME SELF-CARE
== END 2023-02-23 14:25 | disposition home or self-care (01) | DRG 39 ==
LOC: 2ORMAIN 10:40 → 2SICU 15:42
PROVIDERS: ADMIT Surgery; ATTEND Surgery
PROC: 03UL0KZ Supplement Left Internal Carotid Artery with Nonautologous Tissue Substitute, Open Approach (ICD-10-PCS; principal; 2023-02-22 12:30)
PROC: 03CL0ZZ Extirpation of Matter from Left Internal Carotid Artery, Open Approach (ICD-10-PCS; principal; 2023-02-22 12:30)
DX: I65.22 Occlusion and stenosis of left carotid artery (principal); E11.9 Type 2 diabetes mellitus without complications; J44.9 Chronic obstructive pulmonary disease, unspecified; K21.9 Gastro-esophageal reflux disease without esophagitis; E78.5 Hyperlipidemia, unspecified; I10 Essential (primary) hypertension; G47.30 Sleep apnea, unspecified; H40.9 Unspecified glaucoma; E89.0 Postprocedural hypothyroidism; M54.9 Dorsalgia, unspecified; F17.210 Nicotine dependence, cigarettes, uncomplicated; F41.9 Anxiety disorder, unspecified; Z79.899 Other long term (current) drug therapy; Z91.030 Bee allergy status; Z79.85 Long-term (current) use of injectable non-insulin antidiabetic drugs; E66.9 Obesity, unspecified; Z68.31 Body mass index [BMI] 31.0-31.9, adult; I69.311 Memory deficit following cerebral infarction; I69.392 Facial weakness following cerebral infarction
CPT/HCPCS: 80048; 84132; 85025; 86850; 86900; 86901; 88300; 88305; 94640

== ENCOUNTER 2023-12-31 09:52 | Emergency (ER) | payer MEDICARE, OTHER ==
--- NOTE | 2023-12-31 10:16 | ED ---
Abdominal Pain HPI - General Chief Complaint: Abdominal Pain Stated Complaint: Hernia Time Seen by Provider: 12/31/23 10:08 Source: patient, RN notes reviewed Mode of arrival: ambulatory Limitations: no limitations - History of Present Illness Initial Comments: Didier dominic is a 68-year-old male with a history of a umbilical hernia presents emergency department the chief complaint of right lower quadrant and scrotal pain that radiates into his back. Patient is concerned that he has another hernia. He states that he started to experience pain on Saturday. He endorses nausea, denies vomiting or fevers. States that the skin overlying his ear concern is flesh-colored. - Related Data Home Medications Medication Instructions Recorded Confirmed Albuterol Inhaler [Ventolin Hfa 2 puff INHALATION Q4H PRN 05/13/20 02/22/23 Inhaler] Brimonidine Tartrate [Alphagan P 1 drop BOTH EYES BID 05/13/20 02/22/23 0.2% Ophth Soln] Dorzolamide-Timol 2.23%/0.68% 1 drop BOTH EYES BID 05/13/20 02/22/23 [Cosopt] Sertraline HCl [Zoloft] 100 mg PO QAM 07/04/20 02/22/23 Dulaglutide [Trulicity] 0.75 mg SQ MO 10/17/22 02/22/23 Losartan [Cozaar] 50 mg PO QAM 10/17/22 02/22/23 Tiotropium [place] [Spiriva] 1 cap INHALATION QAM 10/17/22 02/22/23 buPROPion SR [Wellbutrin SR] 150 mg PO QAM 10/17/22 02/22/23 Allergies Allergy/AdvReac Type Severity Reaction Status Date / Time bee venom protein (honey bee) Allergy Severe Anaphylaxis Verified 02/22/23 11:12 bee AdvReac Anaphylaxis Uncoded 02/22/23 11:12 Review of Systems ROS Statement: Those systems with pertinent positive or pertinent negative responses have been documented in the HPI. ROS Other: All systems not noted in ROS Statement are negative. 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 Glaucoma. Uses CPAP. History of Any Multi-Drug Resistant Organisms: None Reported Past Surgical History: Hernia Repair, Orthopedic Surgery Additional Past Surgical History / Comment(s): Left eye surgery for Glaucoma, left elbow surgery, thyroidectomy. Past Anesthesia/Blood Transfusion Reactions: No Reported Reaction Past Psychological History: Anxiety Smoking Status: Current every day smoker Past Alcohol Use History: Rare Past Drug Use History: Marijuana - Past Family History Mother Family Medical History: Cancer, Deep Vein Thrombosis (DVT) Sister(s) Family Medical History: Cancer Brother(s) Family Medical History: Cancer General Exam - General Exam Comments Initial Comments: Visual Physical Exam Vital signs reviewed General: Well-appearing, nontoxic, no acute distress. Head: Normocephalic, atraumatic Eyes: PERRLA, EOMI ENT: Airway patent Chest: Nonlabored breathing Skin: No visual rash, normal skin tone Neuro: Alert and oriented 3 Musculoskeletal: No gross abnormalities Limitations: no limitations Course Vital Signs 12/31/23 10:10 Temperature 98.1 F Pulse Rate 100 Respiratory 20 Rate Blood Pressure 183/120 O2 Sat by Pulse 98 Oximetry Medical Decision Making - Medical Decision Making I completed the quick note portion of this chart signed Winnie Granado PA-C Patient left AGAINST MEDICAL ADVICE from the waiting room while laboratory results ordered. Disposition Clinical Impression: Left against medical advice Disposition: HOME SELF-CARE Condition: Good Is patient prescribed a controlled substance at d/c from ED?: No Referrals: Tonja Kaufman NPC [Primary Care Provider] - 1-2 days
[2023-12-31 10:29] VITALS: BP 183/120; PULSE 100; RESP 20; TEMP 98.1
--- NOTE | 2023-12-31 11:27 | US ---
EXAMINATION TYPE: US scrotum with doppler. Grayscale and color Doppler Duplex imaging performed of tu perez scrotum. DATE OF EXAM: 12/31/2023 COMPARISON: CT 2019 CLINICAL INDICATION: Male, 68 years old with history of RLQ abdominal pain and scrotal pain; Right te sticle pain and pain in right groin crease x 3 days. No injury. EXAM MEASUREMENTS: TESTICLES: Right Testicle: 4.0 x 3.3 x 2.3 cm Left Testicle: 5.0 x 3.0 x 2.4 cm EPIDIDYMIS HEAD: Right Epididymis: 0.9 x 0.9 x 1.0cm Left Epididymis: Unable to visualize Doppler performed to assess for testicular vascularity; good bilateral color flow and waveforms are s een. Presence of hydroceles: Yes, right: 1.9 x 0.5 x 0.9 cm. Left: 2.0 x 0.5 x 1.0 cm. Presence of varicoceles: No Right testicle measures 1 cm smaller in length. *Scanned right inguinal canal/crease of groin at patient's area of pain. No abnormalities seen by ult rasound at this time. IMPRESSION: Unremarkable scrotal ultrasound. No evidence of torsion or testicular mass
== END 2023-12-31 12:34 | disposition home or self-care (01) ==
LOC: EC 09:52
DX: R10.31 Right lower quadrant pain (principal); F17.200 Nicotine dependence, unspecified, uncomplicated; Z53.29 Procedure and treatment not carried out because of patient's decision for other reasons; Z91.030 Bee allergy status; Z86.73 Personal history of transient ischemic attack (TIA), and cerebral infarction without residual deficits
CPT/HCPCS: 76870; 93975; 99284

== ENCOUNTER 2023-12-31 21:36 | Emergency (ER) | payer MEDICARE, OTHER ==
--- NOTE | 2023-12-31 21:41 | ED ---
General Adult HPI - General Stated complaint: hernia Time Seen by Provider: 12/31/23 21:40 - History of Present Illness Initial comments: 68-year-old male presented to the ED with complaints of groin pain. Patient states he is concerned he has a new hernia. Notes history of umbilical hernia. Reports pain in his right lower groin. states increasing pain onset 3 days ago. No change in bowel or bladder habits. No fever or chills. No chest pain or khalif rtness of breath. - Related Data Home Medications Medication Instructions Recorded Confirmed Albuterol Inhaler [Ventolin Hfa 2 puff INHALATION Q4H PRN 05/13/20 02/22/23 Inhaler] Brimonidine Tartrate [Alphagan P 1 drop BOTH EYES BID 05/13/20 02/22/23 0.2% Ophth Soln] Dorzolamide-Timol 2.23%/0.68% 1 drop BOTH EYES BID 05/13/20 02/22/23 [Cosopt] Sertraline HCl [Zoloft] 100 mg PO QAM 07/04/20 02/22/23 Dulaglutide [Trulicity] 0.75 mg SQ MO 10/17/22 02/22/23 Losartan [Cozaar] 50 mg PO QAM 10/17/22 02/22/23 Tiotropium [place] [Spiriva] 1 cap INHALATION QAM 10/17/22 02/22/23 buPROPion SR [Wellbutrin SR] 150 mg PO QAM 10/17/22 02/22/23 Allergies Allergy/AdvReac Type Severity Reaction Status Date / Time bee venom protein (honey bee) Allergy Severe Anaphylaxis Verified 12/31/23 21:41 bee AdvReac Anaphylaxis Uncoded 12/31/23 21:41 Review of Systems ROS Statement: Those systems with pertinent positive or pertinent negative responses have been documented in the HPI. ROS Other: All systems not noted in ROS Statement are negative. 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 Glaucoma. Uses CPAP. History of Any Multi-Drug Resistant Organisms: None Reported Past Surgical History: Hernia Repair, Orthopedic Surgery Additional Past Surgical History / Comment(s): Left eye surgery for Glaucoma, left elbow surgery, thyroidectomy. Past Anesthesia/Blood Transfusion Reactions: No Reported Reaction Past Psychological History: Anxiety Smoking Status: Current every day smoker Past Alcohol Use History: Rare Past Drug Use History: Marijuana - Past Family History Mother Family Medical History: Cancer, Deep Vein Thrombosis (DVT) Sister(s) Family Medical History: Cancer Brother(s) Family Medical History: Cancer General Exam - General Exam Comments Initial Comments: Visual Physical Exam Vital signs reviewed General: Well-appearing, nontoxic, no acute distress. Head: Normocephalic, atraumatic Eyes: PERRLA, EOMI ENT: Airway patent Chest: Nonlabored breathing Skin: No visual rash, normal skin tone Neuro: Alert and oriented 3 Musculoskeletal: No gross abnormalities General appearance: alert, in no apparent distress Eye exam: Present: normal appearance Neck exam: Present: normal inspection Respiratory exam: Present: normal lung sounds bilaterally Cardiovascular Exam: Present: regular rate GI/Abdominal exam: Present: soft exam: Present: other (No large femoral or inguinal hernia noted on Valsalva.) Extremities exam: Present: other (Good strength and sensation of BLE. DP/PT pulses intact) Neurological exam: Present: alert, oriented X3 Skin exam: Present: warm, dry Course Vital Signs 12/31/23 12/31/23 01/01/24 21:39 22:50 01:16 Temperature 98.6 F Pulse Rate 131 H 107 H 106 H Respiratory 22 18 18 Rate Blood Pressure 151/98 179/107 148/116 O2 Sat by Pulse 97 95 94 L Oximetry Medical Decision Making - Medical Decision Making Quicknote portion performed. Signed Ellis Verde PA-C Was pt. sent in by a medical professional or institution ([facility], [employer], urgent care, hospital, or [place] health care facility...) When possible be specific @ -No Did you speak to anyone other than the patient for history (EMS, parent, family, police, friend...)? What history was obtained from this source @ -No Did you review nursing and triage notes (agree or disagree)? Why? @ -I reviewed and agree with nursing and triage notes Were old charts reviewed (outside hosp., previous admission, EMS record, old EKG, old radiological studies, urgent care reports/EKG's, [place] health care facility records)? Report findings @ -No old charts were reviewed Differential Diagnosis (chest pain, altered mental status, abdominal pain women, abdominal pain men, vaginal bleeding, weakness, fever, dyspnea, syncope, hea dache, dizziness, GI bleed, back pain, seizure, CVA, palpatations, mental health, musculoskeletal)? @ -Differential Musculoskeletal Muscular strain, contusion, ligament sprain, fracture, arthritis, septic arthritis, bursitis, cellulitis, muscle spasm, nerve compression, DVT, arterial occlusion, herpes zoster, electrolyte abnormality, tumor.... This is not meant to be in all inclusive list EKG interpreted by me (3pts min.). @ -As above X-rays interpreted by me (1pt min.). @ -None done CT interpreted by me (1pt min.). @ -CT abdomen pelvis inter by me which reveals no evidence of acute finding. U/S interpreted by me (1pt. min.). @ -None done What testing was considered but not performed or refused? (CT, X-rays, U/S, labs)? Why? @ -None What meds were considered but not given or refused? Why? @ -None Did you discuss the management of the patient with other professionals (professionals i.e. , PA, [employer], lab, RT, psych nurse, social and human services assistant, structural iron worker, teacher, botanical technical officer, disability case manager)? Give summary @ -No Was smoking cessation discussed for >3mins.? @ -No Was critical care preformed (if so, how long)? @ -No Were there social determinants of health that impacted care today? How? (Homelessness, low income, unemployed, alcoholism, drug addiction, transportation, low edu. Level, literacy, decrease access to med. care, long term, re hab)? @ -No Was there de-escalation of care discussed even if they declined (Discuss DNR or withdrawal of care, Hospice)? DNR status @ -No What co-morbidities impacted this encounter? (DM, HTN, Smoking, COPD, CAD, Cancer, CVA, ARF, Chemo, Hep., AIDS, mental health diagnosis, sleep apnea, morbid obesity)? @ -None Was patient admitted / discharged? Hospital course, mention meds given and route, prescriptions, significant lab abnormalities, going to OR and other pertinent info. @ -Discharge 68-year-old male presenting to the ED with complaints of right groin pain. Patient reports he is worried he may have another hernia. On examination no large obvious hernia. Does have tenderness to palpation of his right groin. No overlying skin changes. Good pulses distally. Laboratory studies reviewed. CBC does show slight elevations in his hemoglobin however remainder of labora tory studies largely unremarkable. CT abdomen pelvis revealed no evidence of acute finding. Discharged home in stable condition with instructions to follow- up with his PCP. Discussed return precautions with patient and family who verbalized agreement. Undiagnosed new problem with uncertain prognosis? @ -No Drug Therapy requiring intensive monitoring for toxicity (Heparin, Nitro, In sulin, Cardizem)? @ -No Were any procedures done? @ -No Diagnosis/symptom? @ -Right groin pain Acute, or Chronic, or Acute on Chronic? @ -Acute Uncomplicated (without systemic symptoms) or Complicated (systemic symptoms)? @ -Uncomplicated Side effects of treatment? @ -No Exacerbation, Progression, or Severe Exacerbation? @ -No Poses a threat to life or bodily function? How? (Chest pain, [place], [place], pneumonia, PE, COPD, DKA, ARF, appy, cholecystitis, CVA, Diverticulitis, Homicidal, Suicidal, threat to staff... and all critical care pts) @ -No - Lab Data Result diagrams: 12/31/23 21:56 12/31/23 21:56 Lab Results 12/31/23 12/31/23 01/01/24 Range/Units 21:56 21:56 00:48 WBC 13.9 H (3.8-10.6) k/uL RBC 6.43 H (4.30-5.90) m/uL Hgb 19.1 H* (13.0-17.5) gm/dL Hct 58.0 H* (39.0-53.0) % MCV 90.3 (80.0-100.0) fL MCH 29.7 (25.0-35.0) pg MCHC 32.9 (31.0-37.0) g/dL RDW 12.3 (11.5-15.5) % Plt Count 354 (150-450) k/uL MPV 7.4 Neutrophils % 72 % Lymphocytes % 16 % Monocytes % 9 % Eosinophils % 1 % Basophils % 1 % Neutrophils # 10.0 H (1.3-7.7) k/uL Lymphocytes # 2.2 (1.0-4.8) k/uL Monocytes # 1.2 H (0-1.0) k/uL Eosinophils # 0.1 (0-0.7) k/uL Basophils # 0.1 (0-0.2) k/uL Sodium 137 (137-145) mmol/L Potassium 5.0 (3.5-5.1) mmol/L Chloride 102 (98-107) mmol/L Carbon Dioxide 23 (22-30) mmol/L Anion Gap 12 mmol/L BUN 18 (9-20) mg/dL Creatinine 0.81 (0.66-1.25) mg/dL Est GFR (CKD-EPI)AfAm >90 (>60 ml/min/1.73 sqM) Est GFR (CKD-EPI)NonAf >90 (>60 ml/min/1.73 sqM) Glucose 161 H (74-99) mg/dL Calcium 10.4 H (8.4-10.2) mg/dL Total Bilirubin 1.2 (0.2-1.3) mg/dL AST 34 (17-59) U/L ALT 28 (4-49) U/L Alkaline Phosphatase 76 (38-126) U/L Total Protein 8.2 (6.3-8.2) g/dL Albumin 4.9 (3.5-5.0) g/dL Urine Color Yellow Urine Appearance Clear (Clear) Urine pH 6.0 (5.0-8.0) Ur Specific [place] >1.050 H (1.001-1.035) Urine Protein 2+ H (Negative) Urine Glucose (UA) Trace H (Negative) Urine Ketones 2+ H (Negative) Urine Blood Small H (Negative) Urine Nitrite Negative (Negative) Urine Bilirubin Negative (Negative) Urine Urobilinogen <2.0 (<2.0) mg/dL Ur Leukocyte Esterase Negative (Negative) Urine RBC 1 (0-5) /hpf Disposition Clinical Impression: Groin pain Disposition: HOME SELF-CARE Condition: Good Additional Instructions: Please return to the Emergency Department if symptoms worsen or any other concerns. Please follow-up with your primary care provider. Is patient prescribed a controlled substance at d/c from ED?: No Referrals: Tonja Kaufman NPC [Primary Care Provider] - 1-2 days Time of Disposition: 01:52
[2023-12-31 21:45] VITALS: TEMP 98.6
[2023-12-31 22:08] LABS: Basophils # (A) 0.1 k/uL (0-0.2); Basophils % (A) 1 %; Eosinophils # (A) 0.1 k/uL (0-0.7); Eosinophils % (A) 1 %; Lymphocytes # (A) 2.2 k/uL (1.0-4.8); Lymphocytes % (A) 16 %; MCH 29.7 pg (25.0-35.0); MCHC 32.9 g/dL (31.0-37.0); MCV 90.3 fL (80.0-100.0); Mean Platelet Volume 7.4; Monocytes # (A) 1.2 k/uL (0-1.0); Monocytes % (A) 9 %; Neutrophils % (A) 72 %; Platelet Count 354 k/uL (150-450); RBC 6.43 m/uL (4.30-5.90); RDW 12.3 % (11.5-15.5); WBC 13.9 k/uL (3.8-10.6)
[2023-12-31 22:13] LABS: ALT 28 U/L (4-49); AST 34 U/L (17-59); African American GFR (CKD) >90 (>60 ml/min/1.73 sqM); Albumin 4.9 g/dL (3.5-5.0); Alkaline Phosphatase 76 U/L (38-126); Anion Gap 12 mmol/L; Blood Urea Nitrogen 18 mg/dL (9-20); Calcium 10.4 mg/dL (8.4-10.2); Carbon Dioxide 23 mmol/L (22-30); Chloride 102 mmol/L (98-107); Glucose 161 mg/dL (74-99); Non-African American GFR(CKD) >90 (>60 ml/min/1.73 sqM); Sodium 137 mmol/L (137-145); Total Bilirubin 1.2 mg/dL (0.2-1.3); Total Protein 8.2 g/dL (6.3-8.2)
[2023-12-31 22:14] LABS: HGB 19.1 gm/dL (13.0-17.5)
[2023-12-31 23:05] VITALS: RESP 18
--- NOTE | 2023-12-31 23:32 | CT ---
EXAM: CT Abdomen and Pelvis With Intravenous Contrast CLINICAL HISTORY: ITS.REASON CT Reason: known hernia r groin r/o strangulation TECHNIQUE: Axial computed tomography images of the abdomen and pelvis with intravenous contrast. CTDI is 23.1 mGy and DLP is 1202.4 mGy-cm. This CT exam was performed using one or more of the following dose reduction techniques: automated exposure control, adjustment of the mA and/or kV according to patient size, and/or use of iterative reconstruction technique. COMPARISON: No relevant prior studies available. FINDINGS: Lung bases: Unremarkable. No mass. No consolidation. ABDOMEN: Liver: Hepatic steatosis. Gallbladder and bile ducts: Unremarkable. No calcified stones. No ductal dilation. Pancreas: Unremarkable. No mass. No ductal dilation. Spleen: Unremarkable. No splenomegaly. Adrenals: Unremarkable. No mass. Kidneys and ureters: Unremarkable. No hydronephrosis with delayed nephrogram. Stomach and bowel: Diverticulosis, without acute diverticulitis. No bowel obstruction. No free air. PELVIS: Appendix: No findings to suggest acute appendicitis. Bladder: Unremarkable. No mass. Reproductive: Unremarkable as visualized. ABDOMEN and PELVIS: Intraperitoneal space: See above. Bones/joints: Degenerative changes of the spine. No acute fracture. No dislocation. Soft tissues: Fat-containing umbilical hernia. Vasculature: Atherosclerotic changes of the aorta. No abdominal aortic aneurysm. Lymph nodes: Unremarkable. No enlarged lymph nodes. IMPRESSION: 1. Hepatic steatosis. 2. Diverticulosis, without acute diverticulitis. No bowel obstruction. No free air.
[2024-01-01 01:16] LABS: Appearance,Urine Clear (Clear); Bilirubin,Urine Negative (Negative); Blood,Urine Small (Negative); Color,Urine Yellow; Glucose,Urine (UA) Trace (Negative); Ketones,Urine 2+ (Negative); Leukocyte Esterase,Urine Negative (Negative); Nitrite,Urine Negative (Negative); Protein,Urine 2+ (Negative); RBC,Urine 1 /hpf (0-5); Urobilinogen,Urine <2.0 mg/dL (<2.0)
[2024-01-01] MEDS: ACETAMINOPHEN TAB 500 MG TAB PO STA (01:18)
[2024-01-01] MEDS: KETOROLAC 15 MG/ML 1 ML VIAL IVP STA (01:20)
[2024-01-01 01:23] LABS: Specific Gravity,Urine >1.050 (1.001-1.035)
[2024-01-01 02:45] VITALS: BP 144/97; PULSE 105
== END 2024-01-01 02:49 | disposition home or self-care (01) ==
LOC: EC 21:36
DX: K76.0 Fatty (change of) liver, not elsewhere classified (principal); K57.90 Diverticulosis of intestine, part unspecified, without perforation or abscess without bleeding; F17.200 Nicotine dependence, unspecified, uncomplicated; F12.90 Cannabis use, unspecified, uncomplicated; Z91.030 Bee allergy status
CPT/HCPCS: 80053; 85025; 74177; 99284; 96374; Q9967; 36415; 81001

== ENCOUNTER → 2024-09-11 | Outpatient (CLI) | payer MEDICARE ==
[2024-09-11 13:23] LABS: Appearance,Urine Clear (Clear); Bilirubin,Urine Negative (Negative); Blood,Urine Negative (Negative); Color,Urine Yellow; Glucose,Urine (UA) Negative (Negative); Ketones,Urine Negative (Negative); Leukocyte Esterase,Urine Negative (Negative); Nitrite,Urine Negative (Negative); PH, Urine 5.5 (5.0-8.0); Protein,Urine Trace (Negative); Specific Gravity,Urine 1.027 (1.001-1.035); Urobilinogen,Urine <2.0 mg/dL (<2.0)
[2024-09-11 20:33] LABS: ALT 26 U/L (10-49); AST 27 U/L (14-35); Albumin 4.5 g/dL (3.8-4.9); Albumin/Globulin Ratio 1.67 Ratio (1.60-3.17); Alkaline Phosphatase 77 U/L (41-126); BUN/Creat Ratio 15.89 Ratio (12.00-20.00); Blood Urea Nitrogen 14.3 mg/dL (9.0-27.0); Calcium 10.3 mg/dL (8.7-10.3); Carbon Dioxide 29.3 mmol/L (21.6-31.8); Chloride 101 mmol/L (96-109); Globulin 2.7 g/dL (1.6-3.3); Glucose 126 mg/dL (70-110); PSA Annual Screen 0.533 ng/mL (0.000-4.000); Sodium 141 mmol/L (135-145); Total Bilirubin 0.6 mg/dL (0.3-1.2); Total Protein 7.2 g/dL (6.2-8.2)
[2024-09-11 20:47] LABS: Basophils # (A) 0.04 X 10*3/uL (0.00-0.10); Basophils % (A) 0.5 %; Eosinophils # (A) 0.08 X 10*3/uL (0.04-0.35); Eosinophils % (A) 0.9 %; HCT 47.6 % (39.6-50.0); HGB 15.1 g/dL (13.0-17.0); Lymphocytes # (A) 1.58 X 10*3/uL (0.90-5.00); Lymphocytes % (A) 18.5 %; MCH 28.6 pg (27.0-32.0); MCHC 31.7 g/dL (32.0-37.0); MCV 90.2 FL (80.0-97.0); Mean Platelet Volume 9.4 FL (9.5-12.2); Monocytes # (A) 0.94 X 10*3/uL (0.20-1.00); NRBC Per 100 WBC 0 X 10*3/uL (0.00-0.01); Neutrophils # (A) 5.85 X 10*3/uL (1.80-7.70); Neutrophils % (A) 68.7 %; Platelet Count 349 X 10*3/uL (140-440); RBC 5.28 X 10*6/uL (4.40-5.60); RDW 12.9 % (11.5-14.5); WBC 8.52 X 10*3/uL (4.50-10.00)
== END | disposition home or self-care (01) ==
LOC: LABWHC1 12:28
PROVIDERS: ATTEND Family Medicine
DX: E11.65 Type 2 diabetes mellitus with hyperglycemia (principal); E55.9 Vitamin D deficiency, unspecified; Z79.899 Other long term (current) drug therapy; Z12.5 Encounter for screening for malignant neoplasm of prostate
CPT/HCPCS: 80053; 82607; 82746; 84443; 85025; 86140; 81003; 82306; 83036; 36415; G0103